=== PATIENT | male | born 1935 | race Caucasian/White ===

== ENCOUNTER 2018-10-28 15:59 | Inpatient (IN) ==
[2018-10-28 16:49] LABS: Basophils % 0.1 % (0.0-0.8); Hematocrit 41.1 VOL% (42.0-52.0); Hemoglobin 12.9 GM/DL (14.0-18.0); Immature Granulocytes % 0.5 %; Immature Granulocytes Absolute 0.06 #; Lymphocytes # 0.8 10*3/uL (1.4-4.0); Lymphocytes % 5.9 % (21.2-54.2); Mean Corpuscular HGB Conc 31.4 GM/DL (32-36); Mean Corpuscular Hemoglobin 28 PG (27-34); Mean Corpuscular Volume 87.8 FL (87-102); Mean Platelet Volume 10.7 FL (9.6-12.0); Monocytes # 1.5 10*3/uL (0.11-0.8); Monocytes % 11.3 % (1.7-12.7); Neutrophils # 10.5 10*3/uL (1.4-7.4); Neutrophils % 82.2 % (38.7-73.9); Platelet Count 379 T/CUMM (130-400); Red Blood Count 4.68 MC/CUMM (3.8-5.5); Red Cell Distribution Width 14.8 % (9.3-17.3); White Blood Count 12.8 T/CUMM (4-12)
[2018-10-28 16:57] LABS: INR 0.9; PT Patient Result 9.7 SECS; Partial Thromboplastin Time 22.9 SECS (0-40)
[2018-10-28] MEDS ORDERED: SODIUM CHLORIDE 0.9% 1,000 ML IV STA (17:03)
[2018-10-28 17:18] LABS: Calcium 9.4 MG/DL (8.5-10.1)
[2018-10-28 17:19] LABS: Albumin 2.7 G/DL (3.4-5.0); Bilirubin,Total 0.86 MG/DL (0.2-1.0); Osmolality,Calculated 316.7 MOS/KG (273-304); Potassium 4.3 MMOL/L (3.5-5.1)
[2018-10-28 18:07] LABS: Apearance,Urine Slightly Hazy (Clear); Bacteria,Urine Many /HPF (Few); Bilirubin,Urine Negative (Negative); Blood, Urine Moderate mg/dL (Negative); Glucose,Urine (UA) Negative (Negative); Ketones,Urine 20 mg/dL (Negative); Mucus,Urine Occasional /LPF (Occasional); Nitrite,Urine Negative (Negative); Protein,Urine 30 MG/DL; RBC,Urine 2 /HPF (0-4); Squamous Epithelial Cell,Urine Occasional /HPF (0-10); Urine Color Yellow (Yellow); Urine Specific Gravity 1.019 (1.001-1.035); Urine Urobilinogen < 2.0 EU/DL (0.2-1.0); WBC,Urine 19 /HPF (0-6)
[2018-10-28] MEDS ORDERED: ONDANSETRON 4 MG/2 ML VIAL IV PRN (19:01)
[2018-10-28] MEDS ORDERED: ZALEPLON 5 MG CAPSULE PO PRN (19:01)
[2018-10-28] MEDS ORDERED: LEVOFLOXACIN INJ 500 MG in PREMIX 1 EACH IV SCH (19:30)
[2018-10-28] MEDS: DEXTROSE 5% NACL 0.45% 1,000 ML IV SCH (22:09)
[2018-10-28] MEDS: ENOXAPARIN 40 MG/0.4 ML SYRINGE SUBCUT SCH (22:14)
[2018-10-28] MEDS: ACETAMINOPHEN 325 MG TABLET PO PRN (23:29)
[2018-10-29 06:19] LABS: Basophils % 0.1 % (0.0-0.8); Eosinophils % 0.2 % (0.00-10.9); Hematocrit 33.6 VOL% (42.0-52.0); Hemoglobin 10.5 GM/DL (14.0-18.0); Immature Granulocytes % 0.5 %; Immature Granulocytes Absolute 0.06 #; Mean Corpuscular HGB Conc 31.3 GM/DL (32-36); Mean Corpuscular Hemoglobin 28 PG (27-34); Mean Corpuscular Volume 88.2 FL (87-102); Mean Platelet Volume 10.8 FL (9.6-12.0); Monocytes # 1.6 10*3/uL (0.11-0.8); Monocytes % 13.1 % (1.7-12.7); Neutrophils # 9.7 10*3/uL (1.4-7.4); Neutrophils % 78.1 % (38.7-73.9); Platelet Count 332 T/CUMM (130-400); Red Blood Count 3.81 MC/CUMM (3.8-5.5); Red Cell Distribution Width 14.9 % (9.3-17.3); White Blood Count 12.5 T/CUMM (4-12)
[2018-10-29] MEDS: DEXTROSE 5% NACL 0.45% 1,000 ML IV SCH (06:36)
[2018-10-29 06:46] LABS: Folate > 24.0 NG/ML (5.4-24.0); Vitamin B12 469 PG/ML (211-911)
[2018-10-29 06:57] LABS: Free T4 (Free Thyroxine) 0.91 NG/DL (0.76-1.46); Osmolality,Calculated 316.4 MOS/KG (273-304); Potassium 3.9 MMOL/L (3.5-5.1); Thyroid Stimulating Hormone 3.71 uIU/ml (0.358-3.74)
[2018-10-29] MEDS: PANTOPRAZOLE 40 MG TABLET PO SCH (08:21)
[2018-10-29] MEDS: LACTATED RINGERS 1,000 ML IV SCH ×2 (10:20→18:40)
[2018-10-29 10:21] LABS: Basophils % 0.1 % (0.0-0.8); Eosinophils % 0.2 % (0.00-10.9); Hematocrit 33.4 VOL% (42.0-52.0); Hemoglobin 10.4 GM/DL (14.0-18.0); Immature Granulocytes % 0.7 %; Immature Granulocytes Absolute 0.09 #; Lymphocytes # 1.3 10*3/uL (1.4-4.0); Lymphocytes % 9.2 % (21.2-54.2); Mean Corpuscular HGB Conc 31.1 GM/DL (32-36); Mean Corpuscular Hemoglobin 27 PG (27-34); Mean Corpuscular Volume 88.1 FL (87-102); Mean Platelet Volume 10.5 FL (9.6-12.0); Monocytes # 1.8 10*3/uL (0.11-0.8); Monocytes % 13.3 % (1.7-12.7); Neutrophils # 10.5 10*3/uL (1.4-7.4); Neutrophils % 76.5 % (38.7-73.9); Platelet Count 318 T/CUMM (130-400); Red Blood Count 3.79 MC/CUMM (3.8-5.5); Red Cell Distribution Width 14.8 % (9.3-17.3); White Blood Count 13.7 T/CUMM (4-12)
[2018-10-29 10:43] LABS: Vitamin B12 403 PG/ML (211-911)
[2018-10-29] MEDS: ceFAZolin 1,000 MG in SYRINGE 1 EACH IV SCH ×2 (11:10→20:01)
[2018-10-29 11:45] LABS: Sedimentation Rate-Westergren 68 MM/HR (0-20)
[2018-10-29] MEDS: ENOXAPARIN 40 MG/0.4 ML SYRINGE SUBCUT SCH (20:01)
[2018-10-30] MEDS: LACTATED RINGERS 1,000 ML IV SCH (02:33)
[2018-10-30] MEDS: ceFAZolin 1,000 MG in SYRINGE 1 EACH IV SCH ×3 (02:34→18:10)
[2018-10-30 05:16] LABS: Basophils % 0.1 % (0.0-0.8); Eosinophils % 0.3 % (0.00-10.9); Hematocrit 32.3 VOL% (42.0-52.0); Hemoglobin 9.8 GM/DL (14.0-18.0); Immature Granulocytes % 0.7 %; Immature Granulocytes Absolute 0.09 #; Lymphocytes # 1.6 10*3/uL (1.4-4.0); Lymphocytes % 12.2 % (21.2-54.2); Mean Corpuscular HGB Conc 30.3 GM/DL (32-36); Mean Corpuscular Hemoglobin 28 PG (27-34); Mean Corpuscular Volume 90.5 FL (87-102); Mean Platelet Volume 10.8 FL (9.6-12.0); Monocytes # 1.7 10*3/uL (0.11-0.8); Monocytes % 12.8 % (1.7-12.7); Neutrophils % 73.9 % (38.7-73.9); Platelet Count 284 T/CUMM (130-400); Red Blood Count 3.57 MC/CUMM (3.8-5.5); Red Cell Distribution Width 14.9 % (9.3-17.3); White Blood Count 13.5 T/CUMM (4-12)
[2018-10-30 05:29] LABS: Osmolality,Calculated 307.1 MOS/KG (273-304); Potassium 4.1 MMOL/L (3.5-5.1)
[2018-10-30] MEDS: PANTOPRAZOLE 40 MG TABLET PO SCH (08:25)
[2018-10-30] MEDS ORDERED: DEXTROSE 5% NACL 0.45% 1,000 ML IV SCH (10:00)
[2018-10-30] MEDS ORDERED: CYANOCOBALAMIN 1000 MCG/1 ML VIAL IM ONE (10:14)
[2018-10-30 10:40] LABS: Hemoglobin A1 (Alkaline) 97.9 % (96.5-98.5); Hemoglobin A2 (Alkaline) 2.1 % (1.5-3.5)
[2018-10-30] MEDS ORDERED: TUBERCULIN SKIN TEST 0.1 ML SYRINGE INTRADERM ONE (12:00)
[2018-10-30] MEDS: DEXTROSE 5% 1,000 ML IV SCH (18:10)
[2018-10-30] MEDS: ENOXAPARIN 40 MG/0.4 ML SYRINGE SUBCUT SCH (20:23)
[2018-10-30] MEDS ORDERED: LEVOFLOXACIN INJ 500 MG in PREMIX 1 EACH IV SCH (21:00)
[2018-10-31] MEDS: DEXTROSE 5% 1,000 ML IV SCH ×2 (03:07→23:25)
[2018-10-31] MEDS: ceFAZolin 1,000 MG in SYRINGE 1 EACH IV SCH (03:08)
[2018-10-31 06:01] LABS: Basophils % 0.1 % (0.0-0.8); Eosinophils # 0.1 10*3/uL (0.0-0.87); Eosinophils % 0.3 % (0.00-10.9); Hematocrit 33.7 VOL% (42.0-52.0); Hemoglobin 10.3 GM/DL (14.0-18.0); Lymphocytes # 1.6 10*3/uL (1.4-4.0); Mean Corpuscular HGB Conc 30.6 GM/DL (32-36); Mean Corpuscular Hemoglobin 27 PG (27-34); Mean Corpuscular Volume 89.6 FL (87-102); Mean Platelet Volume 10.9 FL (9.6-12.0); Monocytes # 2.3 10*3/uL (0.11-0.8); Monocytes % 11.6 % (1.7-12.7); Neutrophils # 15.5 10*3/uL (1.4-7.4); Platelet Count 285 T/CUMM (130-400); Red Blood Count 3.76 MC/CUMM (3.8-5.5); White Blood Count 19.6 T/CUMM (4-12)
[2018-10-31 06:20] LABS: Calcium 8.7 MG/DL (8.5-10.1); Potassium 3.7 MMOL/L (3.5-5.1)
[2018-10-31] MEDS: PANTOPRAZOLE 40 MG TABLET PO SCH (09:38)
[2018-10-31] MEDS ORDERED: BISACODYL 10 MG SUPP RECTAL ONE (10:44)
[2018-10-31] MEDS ORDERED: VANCOMYCIN INJ 1,000 MG in SODIUM CHLORIDE 0.9% 250 ML IV SCH (11:00)
[2018-10-31] MEDS ORDERED: LEVOFLOXACIN INJ 500 MG in PREMIX 1 EACH IV SCH (11:00)
[2018-10-31] MEDS: ACETAMINOPHEN 325 MG TABLET PO PRN (11:26)
[2018-10-31] MEDS: ALBUTEROL/IPRATROPIUM 3 ML NEB RESP TX SCH ×2 (12:45→19:00)
[2018-10-31] MEDS: PIPERACILLIN/TAZOBACTAM 3,375 MG in SODIUM CHLORIDE 0.9% 100 ML IV SCH ×2 (12:59→21:21)
[2018-10-31] MEDS ORDERED: VANCOMYCIN INJ 750 MG in SODIUM CHLORIDE 0.9% 250 ML IV SCH (13:00)
[2018-10-31] MEDS ORDERED: MAGNESIUM CITRATE 300 ML BOTTLE PO ONE (16:46)
[2018-10-31] MEDS ORDERED: WARFARIN 10 MG TABLET PO SCH (18:00)
[2018-10-31] MEDS: ENOXAPARIN 40 MG/0.4 ML SYRINGE SUBCUT SCH (21:20)
[2018-11-01] MEDS: ALBUTEROL/IPRATROPIUM 3 ML NEB RESP TX SCH ×4 (00:20→20:15)
[2018-11-01] MEDS: PIPERACILLIN/TAZOBACTAM 3,375 MG in SODIUM CHLORIDE 0.9% 100 ML IV SCH (04:56)
[2018-11-01 05:09] LABS: Basophils % 0.1 % (0.0-0.8); Eosinophils % 0.1 % (0.00-10.9); Hematocrit 31.7 VOL% (42.0-52.0); Hemoglobin 9.9 GM/DL (14.0-18.0); Immature Granulocytes % 2.1 %; Immature Granulocytes Absolute 0.57 #; Lymphocytes # 1.2 10*3/uL (1.4-4.0); Lymphocytes % 4.6 % (21.2-54.2); Mean Corpuscular HGB Conc 31.2 GM/DL (32-36); Mean Corpuscular Hemoglobin 28 PG (27-34); Mean Corpuscular Volume 88.8 FL (87-102); Monocytes # 2.3 10*3/uL (0.11-0.8); Monocytes % 8.4 % (1.7-12.7); Neutrophils # 22.6 10*3/uL (1.4-7.4); Neutrophils % 84.7 % (38.7-73.9); Platelet Count 284 T/CUMM (130-400); Red Blood Count 3.57 MC/CUMM (3.8-5.5); Red Cell Distribution Width 15.1 % (9.3-17.3); White Blood Count 26.7 T/CUMM (4-12)
[2018-11-01 05:26] LABS: Calcium 8.8 MG/DL (8.5-10.1); Potassium 3.5 MMOL/L (3.5-5.1)
[2018-11-01 05:58] LABS: Lymphocytes 2 % (20-55); Platelet Estimate Normal; Polychromasia Few; Segmented Neutrophils 94 % (50-85); Total Cells Counted 100
[2018-11-01] MEDS: DEXTROSE 5% 1,000 ML IV SCH (06:01)
[2018-11-01 06:42] LABS: INR 1.1; PT Patient Result 12.4 SECS
[2018-11-01] MEDS: PANTOPRAZOLE 40 MG TABLET PO SCH (08:52)
[2018-11-01 10:23] LABS: Albumin 1.6 G/DL (3.4-5.0)
[2018-11-01 10:53] LABS: Lymphocytes,Pleural Fluid 5 %; Monocytes,Pleural Fluid 10 %; Neutrophils,Pleural Fluid 85 %
[2018-11-01 10:57] LABS: Total Protein,Body Fluid 2.5 G/DL
[2018-11-01 10:58] LABS: RBC,Pleural Fluid < 1 T/CUMM
[2018-11-01] MEDS: VANCOMYCIN 50 MG/ML 60 ML/BOTTLE PO SCH ×2 (12:20→18:03)
[2018-11-01 13:18] LABS: Apearance,Urine CLOUDY (Clear); Bacteria,Urine Few /HPF (Few); Bilirubin,Urine Negative (Negative); Blood, Urine Large mg/dL (Negative); Glucose,Urine (UA) Negative (Negative); Ketones,Urine Negative (Negative); Nitrite,Urine Negative (Negative); Protein,Urine 30 MG/DL; RBC,Urine 282 /HPF (0-4); Urine Color Yellow (Yellow); Urine Specific Gravity 1.033 (1.001-1.035); Urine Urobilinogen < 2.0 EU/DL (0.2-1.0); WBC,Urine 28 /HPF (0-6)
[2018-11-01] MEDS: ACYCLOVIR INJ 500 MG in SODIUM CHLORIDE 0.9% 100 ML IV SCH (14:10)
[2018-11-01 16:27] LABS: Glucose,CSF 83 MG/DL (40-70)
[2018-11-01 17:08] LABS: Lymphocytes,CSF 8 %; Monocytes,CSF 8 %; Neutrophils,CSF 82 %; Red Blood Cell,CSF 1609 C/CUMM; White Blood Cell,CSF 14 C/CUMM
[2018-11-01 17:09] LABS: Appearance,CSF Hazy
[2018-11-02] MEDS: VANCOMYCIN 50 MG/ML 60 ML/BOTTLE PO SCH ×4 (00:14→18:11)
[2018-11-02] MEDS: ACYCLOVIR INJ 500 MG in SODIUM CHLORIDE 0.9% 100 ML IV SCH ×2 (01:46→14:12)
[2018-11-02 04:39] LABS: Calcium 8.5 MG/DL (8.5-10.1); Osmolality,Calculated 295.1 MOS/KG (273-304); Potassium 3.9 MMOL/L (3.5-5.1)
[2018-11-02 06:22] LABS: Basophils % 0.1 % (0.0-0.8); Eosinophils # 0.1 10*3/uL (0.0-0.87); Eosinophils % 0.3 % (0.00-10.9); Hematocrit 31.1 VOL% (42.0-52.0); Hemoglobin 9.6 GM/DL (14.0-18.0); Immature Granulocytes % 1.8 %; Immature Granulocytes Absolute 0.47 #; Lymphocytes # 1.9 10*3/uL (1.4-4.0); Lymphocytes % 7.1 % (21.2-54.2); Mean Corpuscular HGB Conc 30.9 GM/DL (32-36); Mean Corpuscular Hemoglobin 27 PG (27-34); Mean Corpuscular Volume 88.6 FL (87-102); Mean Platelet Volume 11.3 FL (9.6-12.0); Monocytes # 2.8 10*3/uL (0.11-0.8); Monocytes % 10.4 % (1.7-12.7); Neutrophils # 21.4 10*3/uL (1.4-7.4); Neutrophils % 80.3 % (38.7-73.9); Platelet Count 316 T/CUMM (130-400); Red Blood Count 3.51 MC/CUMM (3.8-5.5); Red Cell Distribution Width 15.4 % (9.3-17.3); White Blood Count 26.7 T/CUMM (4-12)
[2018-11-02 06:58] LABS: Band Neutrophils 2 % (0-10); Hypochromasia 1+; Lymphocytes 9 % (20-55); Microcytosis 1+; Ovalocytes Slight; Platelet Estimate Normal; Segmented Neutrophils 80 % (50-85); Total Cells Counted 100
[2018-11-02] MEDS: ALBUTEROL/IPRATROPIUM 3 ML NEB RESP TX SCH ×4 (07:25→19:16)
[2018-11-02] MEDS: DEXTROSE 5% 1,000 ML IV SCH (08:34)
[2018-11-02] MEDS: PANTOPRAZOLE 40 MG TABLET PO SCH (08:51)
[2018-11-02] MEDS: cefTRIAXone 2,000 MG in SYRINGE 1 EACH IV SCH ×2 (08:52→21:11)
[2018-11-02] MEDS ORDERED: AMPICILLIN INJ 2,000 MG in SODIUM CHLORIDE 0.9% 100 ML IV SCH (09:00)
[2018-11-02] MEDS ORDERED: VANCOMYCIN INJ 1,250 MG in SODIUM CHLORIDE 0.9% 250 ML IV ONE (10:00)
[2018-11-02] MEDS: AMPICILLIN INJ 2,000 MG in SODIUM CHLORIDE 0.9% 100 ML IV SCH ×3 (11:51→21:10)
[2018-11-03] MEDS: ALBUTEROL/IPRATROPIUM 3 ML NEB RESP TX SCH ×4 (00:19→18:40)
[2018-11-03] MEDS: AMPICILLIN INJ 2,000 MG in SODIUM CHLORIDE 0.9% 100 ML IV SCH ×3 (00:49→09:45)
[2018-11-03] MEDS: VANCOMYCIN 50 MG/ML 60 ML/BOTTLE PO SCH ×3 (00:50→12:05)
[2018-11-03] MEDS: ACYCLOVIR INJ 500 MG in SODIUM CHLORIDE 0.9% 100 ML IV SCH ×2 (01:21→15:52)
[2018-11-03 06:36] LABS: Basophils # 0.1 10*3/uL (0.0-0.2); Basophils % 0.2 % (0.0-0.8); Eosinophils # 0.2 10*3/uL (0.0-0.87); Eosinophils % 0.7 % (0.00-10.9); Hematocrit 31.3 VOL% (42.0-52.0); Hemoglobin 9.7 GM/DL (14.0-18.0); Immature Granulocytes % 1.1 %; Immature Granulocytes Absolute 0.25 #; Lymphocytes # 1.6 10*3/uL (1.4-4.0); Lymphocytes % 6.7 % (21.2-54.2); Mean Corpuscular Hemoglobin 28 PG (27-34); Mean Corpuscular Volume 88.7 FL (87-102); Mean Platelet Volume 11.1 FL (9.6-12.0); Monocytes # 2.9 10*3/uL (0.11-0.8); Monocytes % 12.4 % (1.7-12.7); Neutrophils # 18.6 10*3/uL (1.4-7.4); Neutrophils % 78.9 % (38.7-73.9); Platelet Count 360 T/CUMM (130-400); Red Blood Count 3.53 MC/CUMM (3.8-5.5); Red Cell Distribution Width 15.7 % (9.3-17.3); White Blood Count 23.6 T/CUMM (4-12)
[2018-11-03 06:57] LABS: Albumin 1.5 G/DL (3.4-5.0); Bilirubin,Total 0.5 MG/DL (0.2-1.0); Calcium 8.5 MG/DL (8.5-10.1); Osmolality,Calculated 294.1 MOS/KG (273-304); Potassium 4.2 MMOL/L (3.5-5.1); Total Protein 4.9 G/DL (6.4-8.3)
[2018-11-03 07:29] LABS: Hypochromasia 1+; Lymphocytes 5 % (20-55); Microcytosis 1+; Ovalocytes Slight; Platelet Estimate Adequate; Segmented Neutrophils 84 % (50-85); Total Cells Counted 100
[2018-11-03] MEDS ORDERED: VANCOMYCIN INJ 750 MG in SODIUM CHLORIDE 0.9% 250 ML IV SCH (08:00)
[2018-11-03] MEDS ORDERED: BISACODYL 10 MG SUPP RECTAL ONE (08:29)
[2018-11-03] MEDS: PANTOPRAZOLE 40 MG TABLET PO SCH (08:52)
[2018-11-03] MEDS: cefTRIAXone 2,000 MG in SYRINGE 1 EACH IV SCH (08:55)
[2018-11-03] MEDS: ASPIRIN EC 81 MG TABLET PO SCH (16:44)
[2018-11-03] MEDS: ENOXAPARIN 40 MG/0.4 ML SYRINGE SUBCUT SCH (19:46)
[2018-11-04] MEDS: ALBUTEROL/IPRATROPIUM 3 ML NEB RESP TX SCH ×4 (00:20→19:30)
[2018-11-04] MEDS: ACYCLOVIR INJ 500 MG in SODIUM CHLORIDE 0.9% 100 ML IV SCH ×2 (01:10→14:58)
[2018-11-04 06:05] LABS: Risk Ratio 3.32; VLDL CHOLESTEROL 11.2 MG/DL
[2018-11-04 07:47] LABS: Basophils # 0.1 10*3/uL (0.0-0.2); Basophils % 0.2 % (0.0-0.8); Eosinophils # 0.2 10*3/uL (0.0-0.87); Eosinophils % 0.7 % (0.00-10.9); Hematocrit 29.9 VOL% (42.0-52.0); Hemoglobin 9.3 GM/DL (14.0-18.0); Immature Granulocytes % 0.8 %; Immature Granulocytes Absolute 0.19 #; Lymphocytes # 1.7 10*3/uL (1.4-4.0); Lymphocytes % 7.5 % (21.2-54.2); Mean Corpuscular HGB Conc 31.1 GM/DL (32-36); Mean Corpuscular Hemoglobin 28 PG (27-34); Mean Corpuscular Volume 88.5 FL (87-102); Mean Platelet Volume 11.1 FL (9.6-12.0); Monocytes # 3.2 10*3/uL (0.11-0.8); Monocytes % 13.8 % (1.7-12.7); Neutrophils # 17.7 10*3/uL (1.4-7.4); Platelet Count 394 T/CUMM (130-400); Red Blood Count 3.38 MC/CUMM (3.8-5.5); Red Cell Distribution Width 15.4 % (9.3-17.3)
[2018-11-04 07:54] LABS: Calcium 7.8 MG/DL (8.5-10.1); Potassium 4.4 MMOL/L (3.5-5.1)
[2018-11-04 08:14] LABS: Hypochromasia 1+; Lymphocytes 6 % (20-55); Ovalocytes Slight; Platelet Estimate Adequate; Segmented Neutrophils 85 % (50-85); Total Cells Counted 100
[2018-11-04 08:15] LABS: Microcytosis 1+
[2018-11-04] MEDS: PANTOPRAZOLE 40 MG TABLET PO SCH (08:57)
[2018-11-04] MEDS: ASPIRIN EC 81 MG TABLET PO SCH (08:57)
[2018-11-04] MEDS: DEXTROSE 5% NACL 0.45% 1,000 ML IV SCH (12:01)
[2018-11-04] MEDS: LEVOFLOXACIN INJ 500 MG in PREMIX 1 EACH IV SCH (12:07)
[2018-11-04 12:21] LABS: CMV PCR Source CSF; Epstein-Barr Virus Result Negative (Negative); Epstein-Barr Virus Source CSF; Specimen Source CSF
[2018-11-04 14:13] LABS: Apearance,Urine Slightly Hazy (Clear); Bilirubin,Urine Negative (Negative); Blood, Urine Small mg/dL (Negative); Glucose,Urine (UA) Negative (Negative); Ketones,Urine Negative (Negative); Mucus,Urine Occasional /LPF (Occasional); Nitrite,Urine Negative (Negative); Protein,Urine Negative; RBC,Urine 17 /HPF (0-4); Squamous Epithelial Cell,Urine Occasional /HPF (0-10); Urine Color Yellow (Yellow); Urine Specific Gravity 1.053 (1.001-1.035); Urine Urobilinogen < 2.0 EU/DL (0.2-1.0); WBC,Urine 5 /HPF (0-6)
[2018-11-04] MEDS: ENOXAPARIN 40 MG/0.4 ML SYRINGE SUBCUT SCH (19:16)
[2018-11-04] MEDS: ACETAMINOPHEN 325 MG TABLET PO PRN (21:34)
[2018-11-05] MEDS: ALBUTEROL/IPRATROPIUM 3 ML NEB RESP TX SCH ×4 (00:40→19:07)
[2018-11-05] MEDS: ACYCLOVIR INJ 500 MG in SODIUM CHLORIDE 0.9% 100 ML IV SCH ×2 (01:17→14:25)
[2018-11-05] MEDS: ACETAMINOPHEN 325 MG TABLET PO PRN (01:40)
[2018-11-05 04:54] LABS: Basophils # 0.1 10*3/uL (0.0-0.2); Basophils % 0.2 % (0.0-0.8); Eosinophils # 0.1 10*3/uL (0.0-0.87); Eosinophils % 0.2 % (0.00-10.9); Hemoglobin 8.6 GM/DL (14.0-18.0); Immature Granulocytes Absolute 0.26 #; Lymphocytes # 1.3 10*3/uL (1.4-4.0); Lymphocytes % 5.1 % (21.2-54.2); Mean Corpuscular HGB Conc 30.7 GM/DL (32-36); Mean Corpuscular Hemoglobin 27 PG (27-34); Mean Corpuscular Volume 88.1 FL (87-102); Mean Platelet Volume 10.6 FL (9.6-12.0); Monocytes # 3.5 10*3/uL (0.11-0.8); Monocytes % 13.3 % (1.7-12.7); Neutrophils # 21.2 10*3/uL (1.4-7.4); Neutrophils % 80.2 % (38.7-73.9); Platelet Count 437 T/CUMM (130-400); Red Blood Count 3.18 MC/CUMM (3.8-5.5); Red Cell Distribution Width 15.4 % (9.3-17.3); White Blood Count 26.4 T/CUMM (4-12)
[2018-11-05 05:07] LABS: Osmolality,Calculated 292.1 MOS/KG (273-304); Potassium 3.8 MMOL/L (3.5-5.1)
[2018-11-05 05:15] LABS: Eosinophils 2 % (0-10); Hypochromasia 1+; Lymphocytes 3 % (20-55); Microcytosis Slight; Ovalocytes Slight; Platelet Estimate Adequate; Segmented Neutrophils 81 % (50-85); Total Cells Counted 100
[2018-11-05 07:56] LABS: M. Tuberculosis PCR Result Negative (Negative); M. Tuberculosis PCR Source CSF
[2018-11-05] MEDS: ASPIRIN EC 81 MG TABLET PO SCH (09:33)
[2018-11-05] MEDS: DEXTROSE 5% NACL 0.45% 1,000 ML IV SCH (09:33)
[2018-11-05] MEDS: PANTOPRAZOLE 40 MG TABLET PO SCH (09:33)
[2018-11-05] MEDS: LEVOFLOXACIN INJ 500 MG in PREMIX 1 EACH IV SCH (13:00)
[2018-11-05 14:31] LABS: West Nile Virus Ab, IgG, CSF Negative (Negative); West Nile Virus Ab, IgM, CSF Negative (Negative)
[2018-11-05 14:51] LABS: Adenovirus PCR Negative (Negative); Specimen Source CSF
[2018-11-05] MEDS ORDERED: FUROSEMIDE 40 MG/4 ML VIAL IV ONE (21:29)
[2018-11-05] MEDS: ENOXAPARIN 40 MG/0.4 ML SYRINGE SUBCUT SCH (22:07)
[2018-11-06] MEDS: ALBUTEROL/IPRATROPIUM 3 ML NEB RESP TX SCH ×5 (01:13→18:49)
[2018-11-06] MEDS: ACYCLOVIR INJ 500 MG in SODIUM CHLORIDE 0.9% 100 ML IV SCH ×2 (01:33→15:14)
[2018-11-06 05:20] LABS: Basophils % 0.1 % (0.0-0.8); Eosinophils # 0.2 10*3/uL (0.0-0.87); Eosinophils % 0.9 % (0.00-10.9); Hematocrit 28.8 VOL% (42.0-52.0); Hemoglobin 8.8 GM/DL (14.0-18.0); Immature Granulocytes % 0.8 %; Immature Granulocytes Absolute 0.17 #; Lymphocytes # 1.4 10*3/uL (1.4-4.0); Lymphocytes % 6.4 % (21.2-54.2); Mean Corpuscular HGB Conc 30.6 GM/DL (32-36); Mean Corpuscular Hemoglobin 27 PG (27-34); Mean Corpuscular Volume 88.1 FL (87-102); Mean Platelet Volume 10.6 FL (9.6-12.0); Monocytes # 2.3 10*3/uL (0.11-0.8); Monocytes % 10.7 % (1.7-12.7); Neutrophils # 17.5 10*3/uL (1.4-7.4); Neutrophils % 81.1 % (38.7-73.9); Platelet Count 489 T/CUMM (130-400); Red Blood Count 3.27 MC/CUMM (3.8-5.5); Red Cell Distribution Width 15.2 % (9.3-17.3); White Blood Count 21.5 T/CUMM (4-12)
[2018-11-06 05:47] LABS: Elliptocytes Few; Hypochromasia 1+; Microcytosis Slight; Platelet Estimate Adequate
[2018-11-06] MEDS: PANTOPRAZOLE 40 MG TABLET PO SCH (09:50)
[2018-11-06] MEDS: ASPIRIN EC 81 MG TABLET PO SCH (09:50)
[2018-11-06] MEDS: LEVOFLOXACIN INJ 500 MG in PREMIX 1 EACH IV SCH (12:30)
[2018-11-06 15:22] LABS: Amylase,Body Fluid 36 U/L; LDH,Body Fluid 174 U/L; Total Protein,Body Fluid 2.3 G/DL; Triglycerides,Body Fluid < 14 MG/DL
[2018-11-06 16:23] LABS: Lymphocytes,Pleural Fluid 7 %; Neutrophils,Pleural Fluid 92 %
[2018-11-06 16:30] LABS: RBC,Pleural Fluid 1214 T/CUMM
[2018-11-06] MEDS: ERTAPENEM 1,000 MG in SODIUM CHLORIDE 0.9% 100 ML IV SCH (17:15)
[2018-11-06] MEDS: DEXTROSE 5% NACL 0.45% 1,000 ML IV SCH ×2 (17:15→20:30)
[2018-11-06] MEDS: ENOXAPARIN 40 MG/0.4 ML SYRINGE SUBCUT SCH (20:30)
[2018-11-07] MEDS: ALBUTEROL/IPRATROPIUM 3 ML NEB RESP TX SCH ×4 (02:00→20:20)
[2018-11-07] MEDS: ACYCLOVIR INJ 500 MG in SODIUM CHLORIDE 0.9% 100 ML IV SCH ×2 (02:00→12:14)
[2018-11-07 05:41] LABS: Basophils % 0.2 % (0.0-0.8); Eosinophils # 0.1 10*3/uL (0.0-0.87); Eosinophils % 0.5 % (0.00-10.9); Hematocrit 27.5 VOL% (42.0-52.0); Hemoglobin 8.5 GM/DL (14.0-18.0); Immature Granulocytes % 0.9 %; Immature Granulocytes Absolute 0.19 #; Lymphocytes # 1.8 10*3/uL (1.4-4.0); Lymphocytes % 8.3 % (21.2-54.2); Mean Corpuscular HGB Conc 30.9 GM/DL (32-36); Mean Corpuscular Hemoglobin 27 PG (27-34); Mean Corpuscular Volume 88.1 FL (87-102); Mean Platelet Volume 10.3 FL (9.6-12.0); Monocytes # 1.8 10*3/uL (0.11-0.8); Monocytes % 8.5 % (1.7-12.7); Neutrophils # 17.5 10*3/uL (1.4-7.4); Neutrophils % 81.6 % (38.7-73.9); Platelet Count 509 T/CUMM (130-400); Red Blood Count 3.12 MC/CUMM (3.8-5.5); Red Cell Distribution Width 15.5 % (9.3-17.3); White Blood Count 21.5 T/CUMM (4-12)
[2018-11-07 06:03] LABS: Elliptocytes Few; Hypochromasia 1+; Platelet Estimate Increased
[2018-11-07 06:04] LABS: Microcytosis Slight
[2018-11-07] MEDS: PANTOPRAZOLE 40 MG TABLET PO SCH (09:42)
[2018-11-07] MEDS: ASPIRIN EC 81 MG TABLET PO SCH (09:42)
[2018-11-07] MEDS: ERTAPENEM 1,000 MG in SODIUM CHLORIDE 0.9% 100 ML IV SCH (17:30)
[2018-11-07] MEDS: ROSUVASTATIN 10 MG TABLET PO SCH (21:30)
[2018-11-07] MEDS: ENOXAPARIN 40 MG/0.4 ML SYRINGE SUBCUT SCH (21:30)
[2018-11-07] MEDS: DEXTROSE 5% NACL 0.45% 1,000 ML IV SCH (22:19)
[2018-11-08] MEDS: ALBUTEROL/IPRATROPIUM 3 ML NEB RESP TX SCH ×4 (01:20→20:10)
[2018-11-08] MEDS: ACYCLOVIR INJ 500 MG in SODIUM CHLORIDE 0.9% 100 ML IV SCH ×2 (02:00→14:13)
[2018-11-08 04:54] LABS: Basophils % 0.2 % (0.0-0.8); Eosinophils # 0.1 10*3/uL (0.0-0.87); Eosinophils % 0.5 % (0.00-10.9); Hemoglobin 8.8 GM/DL (14.0-18.0); Immature Granulocytes % 0.9 %; Immature Granulocytes Absolute 0.16 #; Lymphocytes # 1.4 10*3/uL (1.4-4.0); Lymphocytes % 8.2 % (21.2-54.2); Mean Corpuscular HGB Conc 30.3 GM/DL (32-36); Mean Corpuscular Hemoglobin 27 PG (27-34); Mean Corpuscular Volume 88.7 FL (87-102); Mean Platelet Volume 10.3 FL (9.6-12.0); Monocytes # 1.4 10*3/uL (0.11-0.8); Monocytes % 8.4 % (1.7-12.7); Neutrophils % 81.8 % (38.7-73.9); Platelet Count 553 T/CUMM (130-400); Red Blood Count 3.27 MC/CUMM (3.8-5.5); Red Cell Distribution Width 15.5 % (9.3-17.3); White Blood Count 17.1 T/CUMM (4-12)
[2018-11-08 05:06] LABS: Calcium 8.4 MG/DL (8.5-10.1); Osmolality,Calculated 289.4 MOS/KG (273-304); Potassium 4.4 MMOL/L (3.5-5.1)
[2018-11-08] MEDS: PANTOPRAZOLE 40 MG TABLET PO SCH (09:08)
[2018-11-08] MEDS: ASPIRIN EC 81 MG TABLET PO SCH (09:08)
[2018-11-08] MEDS: ACETAMINOPHEN 325 MG TABLET PO PRN (10:10)
[2018-11-08] MEDS ORDERED: FUROSEMIDE 20 MG/2 ML VIAL IV ONE (11:40)
[2018-11-08] MEDS: ERTAPENEM 1,000 MG in SODIUM CHLORIDE 0.9% 100 ML IV SCH (16:02)
[2018-11-08] MEDS: ALBUMIN 25% 25 GM in PREMIX 1 EACH IV SCH (17:20)
[2018-11-08] MEDS: ENOXAPARIN 40 MG/0.4 ML SYRINGE SUBCUT SCH (21:00)
[2018-11-08] MEDS: ROSUVASTATIN 10 MG TABLET PO SCH (21:00)
[2018-11-09] MEDS: ACYCLOVIR INJ 500 MG in SODIUM CHLORIDE 0.9% 100 ML IV SCH ×2 (02:08→13:15)
[2018-11-09] MEDS: ALBUMIN 25% 25 GM in PREMIX 1 EACH IV SCH ×2 (02:08→08:54)
[2018-11-09] MEDS: ALBUTEROL/IPRATROPIUM 3 ML NEB RESP TX SCH ×4 (02:31→20:06)
[2018-11-09 05:19] LABS: Basophils % 0.2 % (0.0-0.8); Eosinophils # 0.1 10*3/uL (0.0-0.87); Eosinophils % 0.5 % (0.00-10.9); Hematocrit 26.9 VOL% (42.0-52.0); Hemoglobin 8.3 GM/DL (14.0-18.0); Immature Granulocytes % 0.8 %; Immature Granulocytes Absolute 0.13 #; Lymphocytes # 1.4 10*3/uL (1.4-4.0); Lymphocytes % 8.4 % (21.2-54.2); Mean Corpuscular HGB Conc 30.9 GM/DL (32-36); Mean Corpuscular Hemoglobin 27 PG (27-34); Mean Corpuscular Volume 87.6 FL (87-102); Mean Platelet Volume 10.3 FL (9.6-12.0); Monocytes # 1.5 10*3/uL (0.11-0.8); Neutrophils # 13.6 10*3/uL (1.4-7.4); Neutrophils % 81.1 % (38.7-73.9); Platelet Count 544 T/CUMM (130-400); Red Blood Count 3.07 MC/CUMM (3.8-5.5); Red Cell Distribution Width 15.5 % (9.3-17.3); White Blood Count 16.8 T/CUMM (4-12)
[2018-11-09] MEDS: PANTOPRAZOLE 40 MG TABLET PO SCH (08:34)
[2018-11-09] MEDS: ASPIRIN EC 81 MG TABLET PO SCH (08:34)
[2018-11-09] MEDS: ACETAMINOPHEN 325 MG TABLET PO PRN (08:34)
[2018-11-09] MEDS: ERTAPENEM 1,000 MG in SODIUM CHLORIDE 0.9% 100 ML IV SCH (16:30)
[2018-11-09] MEDS: ENOXAPARIN 40 MG/0.4 ML SYRINGE SUBCUT SCH (20:50)
[2018-11-09] MEDS: levETIRAcetam 500 MG TABLET PO SCH (20:51)
[2018-11-09] MEDS: ROSUVASTATIN 10 MG TABLET PO SCH (20:51)
[2018-11-10] MEDS ORDERED: SODIUM CHLORIDE 0.9% 100 ML IV ONE (00:34)
[2018-11-10] MEDS: ALBUTEROL/IPRATROPIUM 3 ML NEB RESP TX SCH ×4 (00:56→19:35)
[2018-11-10] MEDS: ACYCLOVIR INJ 500 MG in SODIUM CHLORIDE 0.9% 100 ML IV SCH ×2 (01:23→14:15)
[2018-11-10 06:08] LABS: Basophils # 0.1 10*3/uL (0.0-0.2); Basophils % 0.3 % (0.0-0.8); Eosinophils # 0.1 10*3/uL (0.0-0.87); Eosinophils % 0.4 % (0.00-10.9); Hematocrit 27.2 VOL% (42.0-52.0); Hemoglobin 8.4 GM/DL (14.0-18.0); Immature Granulocytes Absolute 0.19 #; Lymphocytes # 1.3 10*3/uL (1.4-4.0); Lymphocytes % 6.6 % (21.2-54.2); Mean Corpuscular HGB Conc 30.9 GM/DL (32-36); Mean Corpuscular Hemoglobin 27 PG (27-34); Mean Corpuscular Volume 87.7 FL (87-102); Mean Platelet Volume 10.3 FL (9.6-12.0); Monocytes # 1.6 10*3/uL (0.11-0.8); Monocytes % 8.1 % (1.7-12.7); Neutrophils # 16.2 10*3/uL (1.4-7.4); Neutrophils % 83.6 % (38.7-73.9); Platelet Count 551 T/CUMM (130-400); Red Cell Distribution Width 15.5 % (9.3-17.3); White Blood Count 19.4 T/CUMM (4-12)
[2018-11-10 06:26] LABS: Alanine Aminotransferase 28 U/L (16-61); Albumin 2.1 G/DL (3.4-5.0); Alkaline Phosphatase 116 U/L (45-117); Aspartate Amino Transferase 27 U/L (0-37); Bilirubin,Total < 0.39 MG/DL (0.2-1.0); Blood Urea Nitrogen 58 MG/DL (7-18); Calcium 8.3 MG/DL (8.5-10.1); Glucose 124 MG/DL (74-106); Osmolality,Calculated 302.8 MOS/KG (273-304); Potassium 4.1 MMOL/L (3.5-5.1); Sodium 144 MMOL/L (136-145); Total Protein 5.5 G/DL (6.4-8.3)
[2018-11-10] MEDS: ACETAMINOPHEN 325 MG TABLET PO PRN (09:23)
[2018-11-10] MEDS: PANTOPRAZOLE 40 MG TABLET PO SCH (09:24)
[2018-11-10] MEDS: ASPIRIN EC 81 MG TABLET PO SCH (09:24)
[2018-11-10] MEDS: levETIRAcetam 500 MG TABLET PO SCH ×2 (09:24→21:21)
[2018-11-10] MEDS: DEXTROSE 5% NACL 0.45% 1,000 ML IV SCH (12:55)
[2018-11-10] MEDS ORDERED: ZIPRASIDONE 20 MG CAPSULE PO PRN (13:24)
[2018-11-10] MEDS: DICLOFENAC 1% GEL 100 GM TUBE TOP SCH ×2 (15:24→21:26)
[2018-11-10] MEDS: ERTAPENEM 1,000 MG in SODIUM CHLORIDE 0.9% 100 ML IV SCH (17:18)
[2018-11-10] MEDS: ENOXAPARIN 40 MG/0.4 ML SYRINGE SUBCUT SCH (21:22)
[2018-11-10] MEDS: ROSUVASTATIN 10 MG TABLET PO SCH (21:22)
[2018-11-11] MEDS: ACYCLOVIR INJ 500 MG in SODIUM CHLORIDE 0.9% 100 ML IV SCH (00:51)
[2018-11-11] MEDS: DEXTROSE 5% NACL 0.45% 1,000 ML IV SCH (00:51)
[2018-11-11] MEDS: ALBUTEROL/IPRATROPIUM 3 ML NEB RESP TX SCH ×4 (00:58→20:24)
[2018-11-11 05:53] LABS: Calcium 8.4 MG/DL (8.5-10.1); Osmolality,Calculated 304.1 MOS/KG (273-304); Potassium 4.8 MMOL/L (3.5-5.1)
[2018-11-11 06:08] LABS: Basophils % 0.2 % (0.0-0.8); Eosinophils # 0.1 10*3/uL (0.0-0.87); Eosinophils % 0.4 % (0.00-10.9); Hematocrit 30.7 VOL% (42.0-52.0); Hemoglobin 9.5 GM/DL (14.0-18.0); Immature Granulocytes % 0.8 %; Immature Granulocytes Absolute 0.14 #; Lymphocytes # 1.3 10*3/uL (1.4-4.0); Lymphocytes % 7.4 % (21.2-54.2); Mean Corpuscular HGB Conc 30.9 GM/DL (32-36); Mean Corpuscular Hemoglobin 28 PG (27-34); Mean Corpuscular Volume 89.8 FL (87-102); Mean Platelet Volume 10.3 FL (9.6-12.0); Monocytes # 1.7 10*3/uL (0.11-0.8); Monocytes % 9.6 % (1.7-12.7); Neutrophils # 14.8 10*3/uL (1.4-7.4); Neutrophils % 81.6 % (38.7-73.9); Platelet Count 535 T/CUMM (130-400); Red Blood Count 3.42 MC/CUMM (3.8-5.5); Red Cell Distribution Width 15.6 % (9.3-17.3); White Blood Count 18.1 T/CUMM (4-12)
[2018-11-11] MEDS: SODIUM BICARB INJ 150 MEQ in DEXTROSE 5% 850 ML IV SCH ×2 (08:29→20:53)
[2018-11-11] MEDS: DICLOFENAC 1% GEL 100 GM TUBE TOP SCH ×3 (10:15→20:55)
[2018-11-11] MEDS: ASPIRIN EC 81 MG TABLET PO SCH (11:14)
[2018-11-11] MEDS: PANTOPRAZOLE 40 MG TABLET PO SCH (11:14)
[2018-11-11 12:31] LABS: Amorphous Crystals,Urine Occasional /HPF (Few); Apearance,Urine Slightly Hazy (Clear); Bilirubin,Urine Negative (Negative); Blood, Urine Large mg/dL (Negative); Glucose,Urine (UA) Negative (Negative); Ketones,Urine Negative (Negative); Nitrite,Urine Negative (Negative); Protein,Urine Negative; RBC,Urine 9 /HPF (0-4); Urine Color Yellow (Yellow); Urine Specific Gravity 1.012 (1.001-1.035); Urine Urobilinogen < 2.0 EU/DL (0.2-1.0)
[2018-11-11] MEDS: ERTAPENEM 1,000 MG in SODIUM CHLORIDE 0.9% 100 ML IV SCH (17:40)
[2018-11-11] MEDS: ROSUVASTATIN 10 MG TABLET PO SCH (20:53)
[2018-11-11] MEDS: ENOXAPARIN 30 MG/0.3 ML SYRINGE SUBCUT SCH (20:53)
[2018-11-12] MEDS: ALBUTEROL/IPRATROPIUM 3 ML NEB RESP TX SCH ×4 (01:40→18:57)
[2018-11-12 05:29] LABS: Basophils % 0.3 % (0.0-0.8); Eosinophils # 0.2 10*3/uL (0.0-0.87); Eosinophils % 1.8 % (0.00-10.9); Hematocrit 29.5 VOL% (42.0-52.0); Hemoglobin 9.1 GM/DL (14.0-18.0); Immature Granulocytes % 0.5 %; Immature Granulocytes Absolute 0.06 #; Lymphocytes # 1.4 10*3/uL (1.4-4.0); Lymphocytes % 10.9 % (21.2-54.2); Mean Corpuscular HGB Conc 30.8 GM/DL (32-36); Mean Corpuscular Hemoglobin 27 PG (27-34); Mean Corpuscular Volume 88.1 FL (87-102); Mean Platelet Volume 10.9 FL (9.6-12.0); Monocytes # 1.2 10*3/uL (0.11-0.8); Monocytes % 9.8 % (1.7-12.7); Neutrophils # 9.7 10*3/uL (1.4-7.4); Neutrophils % 76.7 % (38.7-73.9); Platelet Count 445 T/CUMM (130-400); Red Blood Count 3.35 MC/CUMM (3.8-5.5); Red Cell Distribution Width 15.6 % (9.3-17.3); White Blood Count 12.6 T/CUMM (4-12)
[2018-11-12 05:39] LABS: Albumin 1.8 G/DL (3.4-5.0); Bilirubin,Total 0.7 MG/DL (0.2-1.0); Calcium 8.3 MG/DL (8.5-10.1); Osmolality,Calculated 308.7 MOS/KG (273-304); Potassium 4.5 MMOL/L (3.5-5.1); Total Protein 5.5 G/DL (6.4-8.3)
[2018-11-12] MEDS: SODIUM BICARB INJ 150 MEQ in DEXTROSE 5% 850 ML IV SCH (08:39)
[2018-11-12] MEDS: ASPIRIN EC 81 MG TABLET PO SCH (08:40)
[2018-11-12] MEDS: PANTOPRAZOLE 40 MG TABLET PO SCH (08:40)
[2018-11-12] MEDS: DICLOFENAC 1% GEL 100 GM TUBE TOP SCH ×3 (08:43→21:10)
[2018-11-12] MEDS: DEXTROSE 5% 1,000 ML IV SCH (14:41)
[2018-11-12] MEDS: CLOPIDOGREL 75 MG TABLET PO SCH (17:56)
[2018-11-12] MEDS: ERTAPENEM 1,000 MG in SODIUM CHLORIDE 0.9% 100 ML IV SCH (18:40)
[2018-11-12] MEDS: ENOXAPARIN 30 MG/0.3 ML SYRINGE SUBCUT SCH (21:09)
[2018-11-12] MEDS: ROSUVASTATIN 10 MG TABLET PO SCH (21:09)
[2018-11-13] MEDS: ALBUTEROL/IPRATROPIUM 3 ML NEB RESP TX SCH ×4 (00:18→19:20)
[2018-11-13] MEDS: DEXTROSE 5% 1,000 ML IV SCH ×2 (01:36→16:30)
[2018-11-13 05:58] LABS: Basophils % 0.3 % (0.0-0.8); Eosinophils # 0.3 10*3/uL (0.0-0.87); Eosinophils % 2.4 % (0.00-10.9); Hematocrit 26.7 VOL% (42.0-52.0); Hemoglobin 8.1 GM/DL (14.0-18.0); Immature Granulocytes % 0.6 %; Immature Granulocytes Absolute 0.07 #; Lymphocytes # 1.7 10*3/uL (1.4-4.0); Mean Corpuscular HGB Conc 30.3 GM/DL (32-36); Mean Corpuscular Hemoglobin 27 PG (27-34); Mean Platelet Volume 10.3 FL (9.6-12.0); Monocytes # 1.3 10*3/uL (0.11-0.8); Monocytes % 10.8 % (1.7-12.7); Neutrophils # 8.6 10*3/uL (1.4-7.4); Neutrophils % 71.9 % (38.7-73.9); Platelet Count 512 T/CUMM (130-400); Red Cell Distribution Width 15.2 % (9.3-17.3); White Blood Count 11.9 T/CUMM (4-12)
[2018-11-13 06:22] LABS: Albumin 1.6 G/DL (3.4-5.0); Calcium 8.3 MG/DL (8.5-10.1); Potassium 3.9 MMOL/L (3.5-5.1); Total Protein 5.1 G/DL (6.4-8.3)
[2018-11-13] MEDS: DICLOFENAC 1% GEL 100 GM TUBE TOP SCH ×3 (13:20→21:11)
[2018-11-13] MEDS: ASPIRIN EC 81 MG TABLET PO SCH (13:20)
[2018-11-13] MEDS: PANTOPRAZOLE 40 MG TABLET PO SCH (13:20)
[2018-11-13] MEDS: CLOPIDOGREL 75 MG TABLET PO SCH (13:20)
[2018-11-13] MEDS: ERTAPENEM 1,000 MG in SODIUM CHLORIDE 0.9% 100 ML IV SCH (16:30)
[2018-11-13] MEDS: ENOXAPARIN 30 MG/0.3 ML SYRINGE SUBCUT SCH (21:09)
[2018-11-13] MEDS: ROSUVASTATIN 10 MG TABLET PO SCH (21:09)
[2018-11-14] MEDS: ALBUTEROL/IPRATROPIUM 3 ML NEB RESP TX SCH ×4 (01:04→20:59)
[2018-11-14] MEDS: DEXTROSE 5% 1,000 ML IV SCH (05:26)
[2018-11-14] MEDS: ASPIRIN EC 81 MG TABLET PO SCH (08:52)
[2018-11-14] MEDS: PANTOPRAZOLE 40 MG TABLET PO SCH (08:53)
[2018-11-14] MEDS: DICLOFENAC 1% GEL 100 GM TUBE TOP SCH ×3 (08:53→21:16)
[2018-11-14] MEDS: CLOPIDOGREL 75 MG TABLET PO SCH (08:53)
[2018-11-14] MEDS ORDERED: LACTULOSE 20 GM/30 ML UDCUP PO PRN (12:14)
[2018-11-14] MEDS ORDERED: ERTAPENEM 1,000 MG in SODIUM CHLORIDE 0.9% 100 ML IV SCH (15:00)
[2018-11-14] MEDS: ROSUVASTATIN 10 MG TABLET PO SCH (21:16)
[2018-11-14] MEDS: ENOXAPARIN 30 MG/0.3 ML SYRINGE SUBCUT SCH (21:17)
[2018-11-15] MEDS: ALBUTEROL/IPRATROPIUM 3 ML NEB RESP TX SCH ×5 (01:54→23:52)
[2018-11-15] MEDS: DEXTROSE 5% 1,000 ML IV SCH ×2 (03:07→23:45)
[2018-11-15 04:42] LABS: Basophils # 0.1 10*3/uL (0.0-0.2); Basophils % 0.5 % (0.0-0.8); Eosinophils # 0.1 10*3/uL (0.0-0.87); Eosinophils % 0.5 % (0.00-10.9); Hematocrit 25.9 VOL% (42.0-52.0); Hemoglobin 8.1 GM/DL (14.0-18.0); Immature Granulocytes % 0.6 %; Immature Granulocytes Absolute 0.06 #; Lymphocytes # 1.5 10*3/uL (1.4-4.0); Lymphocytes % 14.2 % (21.2-54.2); Mean Corpuscular HGB Conc 31.3 GM/DL (32-36); Mean Corpuscular Hemoglobin 28 PG (27-34); Mean Corpuscular Volume 87.8 FL (87-102); Mean Platelet Volume 9.9 FL (9.6-12.0); Neutrophils # 7.9 10*3/uL (1.4-7.4); Neutrophils % 75.2 % (38.7-73.9); Platelet Count 561 T/CUMM (130-400); Red Blood Count 2.95 MC/CUMM (3.8-5.5); Red Cell Distribution Width 14.6 % (9.3-17.3); White Blood Count 10.5 T/CUMM (4-12)
[2018-11-15 05:00] LABS: Calcium 7.8 MG/DL (8.5-10.1); Osmolality,Calculated 287.3 MOS/KG (273-304); Potassium 4.1 MMOL/L (3.5-5.1)
[2018-11-15] MEDS: ASPIRIN EC 81 MG TABLET PO SCH (08:32)
[2018-11-15] MEDS: CLOPIDOGREL 75 MG TABLET PO SCH (08:33)
[2018-11-15] MEDS: DICLOFENAC 1% GEL 100 GM TUBE TOP SCH ×3 (08:33→21:24)
[2018-11-15] MEDS: PANTOPRAZOLE 40 MG TABLET PO SCH (08:33)
[2018-11-15] MEDS: cefTRIAXone 1,000 MG in SYRINGE 1 EACH IV SCH (13:37)
[2018-11-15] MEDS: ACETAMINOPHEN 325 MG TABLET PO PRN (17:25)
[2018-11-15] MEDS: ENOXAPARIN 30 MG/0.3 ML SYRINGE SUBCUT SCH (21:24)
[2018-11-15] MEDS: ROSUVASTATIN 10 MG TABLET PO SCH (22:00)
[2018-11-16] MEDS: ACETAMINOPHEN 325 MG TABLET PO PRN (04:58)
[2018-11-16 06:47] LABS: Basophils % 0.3 % (0.0-0.8); Eosinophils # 0.1 10*3/uL (0.0-0.87); Eosinophils % 0.4 % (0.00-10.9); Hematocrit 26.7 VOL% (42.0-52.0); Hemoglobin 8.2 GM/DL (14.0-18.0); Immature Granulocytes % 0.7 %; Immature Granulocytes Absolute 0.08 #; Lymphocytes # 1.4 10*3/uL (1.4-4.0); Mean Corpuscular HGB Conc 30.7 GM/DL (32-36); Mean Corpuscular Hemoglobin 27 PG (27-34); Mean Corpuscular Volume 87.5 FL (87-102); Mean Platelet Volume 10.1 FL (9.6-12.0); Monocytes # 1.1 10*3/uL (0.11-0.8); Monocytes % 9.6 % (1.7-12.7); Neutrophils # 8.8 10*3/uL (1.4-7.4); Platelet Count 575 T/CUMM (130-400); Red Blood Count 3.05 MC/CUMM (3.8-5.5); Red Cell Distribution Width 14.6 % (9.3-17.3); White Blood Count 11.4 T/CUMM (4-12)
[2018-11-16 07:18] LABS: Calcium 8.1 MG/DL (8.5-10.1); Osmolality,Calculated 284.4 MOS/KG (273-304); Potassium 3.9 MMOL/L (3.5-5.1)
[2018-11-16] MEDS: ALBUTEROL/IPRATROPIUM 3 ML NEB RESP TX SCH ×3 (08:24→19:35)
[2018-11-16] MEDS: CLOPIDOGREL 75 MG TABLET PO SCH (09:13)
[2018-11-16] MEDS: PANTOPRAZOLE 40 MG TABLET PO SCH (09:13)
[2018-11-16] MEDS: ASPIRIN EC 81 MG TABLET PO SCH (09:13)
[2018-11-16] MEDS: DICLOFENAC 1% GEL 100 GM TUBE TOP SCH ×3 (09:13→21:37)
[2018-11-16] MEDS: cefTRIAXone 1,000 MG in SYRINGE 1 EACH IV SCH (13:55)
[2018-11-16] MEDS: ROSUVASTATIN 10 MG TABLET PO SCH (21:36)
[2018-11-16] MEDS: ENOXAPARIN 30 MG/0.3 ML SYRINGE SUBCUT SCH (21:37)
[2018-11-16] MEDS: OXcarbazepine 300 MG TABLET PO SCH (21:37)
[2018-11-17] MEDS: ALBUTEROL/IPRATROPIUM 3 ML NEB RESP TX SCH ×4 (01:00→19:23)
[2018-11-17 04:46] LABS: Basophils # 0.1 10*3/uL (0.0-0.2); Basophils % 0.6 % (0.0-0.8); Eosinophils # 0.2 10*3/uL (0.0-0.87); Eosinophils % 1.8 % (0.00-10.9); Hematocrit 26.9 VOL% (42.0-52.0); Hemoglobin 8.3 GM/DL (14.0-18.0); Immature Granulocytes % 0.4 %; Immature Granulocytes Absolute 0.05 #; Lymphocytes # 2.2 10*3/uL (1.4-4.0); Lymphocytes % 19.1 % (21.2-54.2); Mean Corpuscular HGB Conc 30.9 GM/DL (32-36); Mean Corpuscular Hemoglobin 27 PG (27-34); Mean Corpuscular Volume 88.5 FL (87-102); Mean Platelet Volume 9.8 FL (9.6-12.0); Monocytes # 1.2 10*3/uL (0.11-0.8); Monocytes % 10.8 % (1.7-12.7); Neutrophils # 7.7 10*3/uL (1.4-7.4); Neutrophils % 67.3 % (38.7-73.9); Platelet Count 599 T/CUMM (130-400); Red Blood Count 3.04 MC/CUMM (3.8-5.5); Red Cell Distribution Width 14.6 % (9.3-17.3); White Blood Count 11.4 T/CUMM (4-12)
[2018-11-17 05:00] LABS: Calcium 8.2 MG/DL (8.5-10.1); Potassium 3.8 MMOL/L (3.5-5.1)
[2018-11-17] MEDS: ASPIRIN EC 81 MG TABLET PO SCH (10:04)
[2018-11-17] MEDS: CLOPIDOGREL 75 MG TABLET PO SCH (10:08)
[2018-11-17] MEDS: DICLOFENAC 1% GEL 100 GM TUBE TOP SCH ×3 (10:10→21:05)
[2018-11-17] MEDS: OXcarbazepine 300 MG TABLET PO SCH ×2 (10:10→21:02)
[2018-11-17] MEDS: PANTOPRAZOLE 40 MG TABLET PO SCH (10:14)
[2018-11-17] MEDS: cefTRIAXone 1,000 MG in SYRINGE 1 EACH IV SCH (13:31)
[2018-11-17] MEDS: DEXTROSE 5% 1,000 ML IV SCH (13:36)
[2018-11-17] MEDS: ENOXAPARIN 30 MG/0.3 ML SYRINGE SUBCUT SCH (21:01)
[2018-11-17] MEDS: ROSUVASTATIN 10 MG TABLET PO SCH (21:02)
[2018-11-17] MEDS: MELATONIN 3 MG TABLET PO SCH (21:02)
[2018-11-18] MEDS: ALBUTEROL/IPRATROPIUM 3 ML NEB RESP TX SCH ×4 (00:39→19:23)
[2018-11-18] MEDS: PANTOPRAZOLE 40 MG TABLET PO SCH (08:37)
[2018-11-18] MEDS: OXcarbazepine 300 MG TABLET PO SCH ×2 (08:37→23:09)
[2018-11-18] MEDS: ASPIRIN EC 81 MG TABLET PO SCH (08:37)
[2018-11-18] MEDS: CLOPIDOGREL 75 MG TABLET PO SCH (08:37)
[2018-11-18] MEDS: DICLOFENAC 1% GEL 100 GM TUBE TOP SCH ×3 (08:40→23:09)
[2018-11-18] MEDS: cefTRIAXone 1,000 MG in SYRINGE 1 EACH IV SCH (12:18)
[2018-11-18] MEDS: ACETAMINOPHEN 325 MG TABLET PO PRN (17:39)
[2018-11-18] MEDS: MELATONIN 3 MG TABLET PO SCH (23:08)
[2018-11-18] MEDS: ENOXAPARIN 30 MG/0.3 ML SYRINGE SUBCUT SCH (23:08)
[2018-11-18] MEDS: ROSUVASTATIN 10 MG TABLET PO SCH (23:08)
[2018-11-19] MEDS: ALBUTEROL/IPRATROPIUM 3 ML NEB RESP TX SCH ×4 (00:37→19:16)
[2018-11-19 05:22] LABS: Basophils # 0.1 10*3/uL (0.0-0.2); Basophils % 0.5 % (0.0-0.8); Eosinophils # 0.7 10*3/uL (0.0-0.87); Eosinophils % 5.3 % (0.00-10.9); Hematocrit 28.6 VOL% (42.0-52.0); Hemoglobin 8.7 GM/DL (14.0-18.0); Immature Granulocytes % 0.6 %; Immature Granulocytes Absolute 0.07 #; Lymphocytes # 2.2 10*3/uL (1.4-4.0); Lymphocytes % 18.2 % (21.2-54.2); Mean Corpuscular HGB Conc 30.4 GM/DL (32-36); Mean Corpuscular Hemoglobin 27 PG (27-34); Mean Corpuscular Volume 89.4 FL (87-102); Mean Platelet Volume 9.9 FL (9.6-12.0); Monocytes # 1.6 10*3/uL (0.11-0.8); Monocytes % 13.3 % (1.7-12.7); Neutrophils # 7.6 10*3/uL (1.4-7.4); Neutrophils % 62.1 % (38.7-73.9); Platelet Count 462 T/CUMM (130-400); Red Cell Distribution Width 14.7 % (9.3-17.3); White Blood Count 12.2 T/CUMM (4-12)
[2018-11-19 05:40] LABS: Albumin 1.8 G/DL (3.4-5.0); Bilirubin,Total 0.6 MG/DL (0.2-1.0); Calcium 8.1 MG/DL (8.5-10.1); Osmolality,Calculated 289.8 MOS/KG (273-304); Potassium 3.7 MMOL/L (3.5-5.1); Total Protein 5.2 G/DL (6.4-8.3)
[2018-11-19] MEDS: PANTOPRAZOLE 40 MG TABLET PO SCH (08:58)
[2018-11-19] MEDS: CLOPIDOGREL 75 MG TABLET PO SCH (08:59)
[2018-11-19] MEDS: DICLOFENAC 1% GEL 100 GM TUBE TOP SCH ×3 (08:59→20:57)
[2018-11-19] MEDS: ASPIRIN EC 81 MG TABLET PO SCH (08:59)
[2018-11-19] MEDS: OXcarbazepine 300 MG TABLET PO SCH ×2 (08:59→20:53)
[2018-11-19] MEDS: cefTRIAXone 1,000 MG in SYRINGE 1 EACH IV SCH (13:37)
[2018-11-19] MEDS: ROSUVASTATIN 10 MG TABLET PO SCH (20:52)
[2018-11-19] MEDS: MELATONIN 3 MG TABLET PO SCH (20:53)
[2018-11-19] MEDS: ENOXAPARIN 30 MG/0.3 ML SYRINGE SUBCUT SCH (20:57)
[2018-11-20] MEDS: ALBUTEROL/IPRATROPIUM 3 ML NEB RESP TX SCH ×4 (00:40→19:10)
[2018-11-20 05:38] LABS: Basophils % 0.3 % (0.0-0.8); Eosinophils # 0.6 10*3/uL (0.0-0.87); Eosinophils % 4.6 % (0.00-10.9); Hemoglobin 7.9 GM/DL (14.0-18.0); Immature Granulocytes % 0.6 %; Immature Granulocytes Absolute 0.07 #; Lymphocytes # 1.7 10*3/uL (1.4-4.0); Lymphocytes % 13.6 % (21.2-54.2); Mean Corpuscular HGB Conc 30.4 GM/DL (32-36); Mean Corpuscular Hemoglobin 27 PG (27-34); Mean Platelet Volume 10.1 FL (9.6-12.0); Monocytes # 1.3 10*3/uL (0.11-0.8); Monocytes % 10.2 % (1.7-12.7); Neutrophils # 8.7 10*3/uL (1.4-7.4); Neutrophils % 70.7 % (38.7-73.9); Platelet Count 449 T/CUMM (130-400); Red Blood Count 2.92 MC/CUMM (3.8-5.5); Red Cell Distribution Width 14.8 % (9.3-17.3); White Blood Count 12.3 T/CUMM (4-12)
[2018-11-20 06:01] LABS: Calcium 8.2 MG/DL (8.5-10.1); Osmolality,Calculated 289.8 MOS/KG (273-304); Potassium 3.7 MMOL/L (3.5-5.1)
[2018-11-20] MEDS: CLOPIDOGREL 75 MG TABLET PO SCH (09:15)
[2018-11-20] MEDS: PANTOPRAZOLE 40 MG TABLET PO SCH (09:15)
[2018-11-20] MEDS: OXcarbazepine 300 MG TABLET PO SCH ×2 (09:15→21:19)
[2018-11-20] MEDS: ASPIRIN EC 81 MG TABLET PO SCH (09:15)
[2018-11-20] MEDS: DICLOFENAC 1% GEL 100 GM TUBE TOP SCH ×3 (09:15→21:19)
[2018-11-20] MEDS: CLOTRIMAZOLE 1% CREAM 15 GM TUBE TOP SCH ×2 (13:55→21:19)
[2018-11-20] MEDS: cefTRIAXone 1,000 MG in SYRINGE 1 EACH IV SCH (13:55)
[2018-11-20 18:32] LABS: Apearance,Urine CLEAR (Clear); Bacteria,Urine Occasional /HPF (Few); Bilirubin,Urine Negative (Negative); Blood, Urine Large mg/dL (Negative); Calcium Oxalate Crystals,Urine Occasional /HPF (Few); Glucose,Urine (UA) Negative (Negative); Ketones,Urine Negative (Negative); Mucus,Urine Occasional /LPF (Occasional); Nitrite,Urine Negative (Negative); Protein,Urine Negative; RBC,Urine 19 /HPF (0-4); Urine Color Yellow (Yellow); Urine Specific Gravity 1.004 (1.001-1.035); Urine Urobilinogen < 2.0 EU/DL (0.2-1.0); WBC,Urine 4 /HPF (0-6)
[2018-11-20] MEDS: ROSUVASTATIN 10 MG TABLET PO SCH (21:18)
[2018-11-20] MEDS: ENOXAPARIN 30 MG/0.3 ML SYRINGE SUBCUT SCH (21:19)
[2018-11-20] MEDS: MELATONIN 3 MG TABLET PO SCH (21:19)
[2018-11-21] MEDS: ALBUTEROL/IPRATROPIUM 3 ML NEB RESP TX SCH ×4 (02:27→19:39)
[2018-11-21] MEDS: OXcarbazepine 300 MG TABLET PO SCH ×2 (09:02→20:37)
[2018-11-21] MEDS: CLOPIDOGREL 75 MG TABLET PO SCH (09:03)
[2018-11-21] MEDS: ASPIRIN EC 81 MG TABLET PO SCH (09:03)
[2018-11-21] MEDS: CLOTRIMAZOLE 1% CREAM 15 GM TUBE TOP SCH ×2 (09:03→20:40)
[2018-11-21] MEDS: PANTOPRAZOLE 40 MG TABLET PO SCH (09:03)
[2018-11-21] MEDS: DICLOFENAC 1% GEL 100 GM TUBE TOP SCH ×3 (09:04→20:41)
[2018-11-21] MEDS: cefTRIAXone 1,000 MG in SYRINGE 1 EACH IV SCH (14:49)
[2018-11-21] MEDS: DESITIN 4OZ/NYSTATIN 15 GRAM MIXTURE PASTE TOP SCH ×2 (15:58→20:44)
[2018-11-21] MEDS: ROSUVASTATIN 10 MG TABLET PO SCH (20:36)
[2018-11-21] MEDS: CEFUROXIME 500 MG TABLET PO SCH (20:37)
[2018-11-21] MEDS: ENOXAPARIN 30 MG/0.3 ML SYRINGE SUBCUT SCH (20:37)
[2018-11-21] MEDS: MELATONIN 3 MG TABLET PO SCH (20:37)
[2018-11-21] MEDS: metroNIDAZOLE 500 MG TABLET PO SCH (20:42)
[2018-11-22] MEDS: ALBUTEROL/IPRATROPIUM 3 ML NEB RESP TX SCH ×4 (00:33→19:13)
[2018-11-22] MEDS: OXcarbazepine 300 MG TABLET PO SCH ×2 (10:17→21:02)
[2018-11-22] MEDS: metroNIDAZOLE 500 MG TABLET PO SCH ×3 (10:17→21:02)
[2018-11-22] MEDS: CEFUROXIME 500 MG TABLET PO SCH ×2 (10:17→21:04)
[2018-11-22] MEDS: ASPIRIN EC 81 MG TABLET PO SCH (10:18)
[2018-11-22] MEDS: CLOPIDOGREL 75 MG TABLET PO SCH (10:19)
[2018-11-22] MEDS: CLOTRIMAZOLE 1% CREAM 15 GM TUBE TOP SCH ×2 (10:19→21:03)
[2018-11-22] MEDS: PANTOPRAZOLE 40 MG TABLET PO SCH (10:19)
[2018-11-22] MEDS: DESITIN 4OZ/NYSTATIN 15 GRAM MIXTURE PASTE TOP SCH ×2 (10:19→21:03)
[2018-11-22] MEDS: DICLOFENAC 1% GEL 100 GM TUBE TOP SCH ×3 (10:19→21:03)
[2018-11-22] MEDS: ROSUVASTATIN 10 MG TABLET PO SCH (21:02)
[2018-11-22] MEDS: MELATONIN 3 MG TABLET PO SCH (21:02)
[2018-11-22] MEDS: ENOXAPARIN 30 MG/0.3 ML SYRINGE SUBCUT SCH (21:03)
[2018-11-23] MEDS: ALBUTEROL/IPRATROPIUM 3 ML NEB RESP TX SCH ×3 (01:27→12:00)
[2018-11-23] MEDS: OXcarbazepine 300 MG TABLET PO SCH (09:40)
[2018-11-23] MEDS: CLOPIDOGREL 75 MG TABLET PO SCH (09:40)
[2018-11-23] MEDS: PANTOPRAZOLE 40 MG TABLET PO SCH (09:40)
[2018-11-23] MEDS: CLOTRIMAZOLE 1% CREAM 15 GM TUBE TOP SCH (09:40)
[2018-11-23] MEDS: CEFUROXIME 500 MG TABLET PO SCH (09:40)
[2018-11-23] MEDS: ASPIRIN EC 81 MG TABLET PO SCH (09:40)
[2018-11-23] MEDS: metroNIDAZOLE 500 MG TABLET PO SCH (09:40)
[2018-11-23] MEDS: DICLOFENAC 1% GEL 100 GM TUBE TOP SCH (09:41)
[2018-11-23] MEDS: DESITIN 4OZ/NYSTATIN 15 GRAM MIXTURE PASTE TOP SCH (09:41)
[2018-11-23 12:12] VITALS: BP 138/61
== END 2018-11-23 13:44 | disposition hospice, home (50) | DRG 689 ==
LOC: EDBD → EDUNIT# → N.ED 15:59 → SUATTDRO 19:01 → N.EDINP 19:01 → N.3E 20:25
PROVIDERS: ADMIT Hospitalist; ATTEND Internal Medicine
PROC: IRTHORA (2018-11-06 07:30)

== ENCOUNTER 2018-11-29 10:34 | Inpatient (IN) ==
[2018-11-29] MEDS ORDERED: INFLUENZA VIRUS VACCINE 0.5 ML SYRINGE IM ONE (13:01)
[2018-11-29 13:44] LABS: Basophils % 0.2 % (0.0-0.8); Eosinophils % 0.2 % (0.00-10.9); Hematocrit 26.9 VOL% (42.0-52.0); Hemoglobin 8.1 GM/DL (14.0-18.0); Immature Granulocytes % 1.1 %; Immature Granulocytes Absolute 0.07 #; Lymphocytes # 0.6 10*3/uL (1.4-4.0); Lymphocytes % 9.5 % (21.2-54.2); Mean Corpuscular HGB Conc 30.1 GM/DL (32-36); Mean Corpuscular Hemoglobin 27 PG (27-34); Mean Corpuscular Volume 88.8 FL (87-102); Mean Platelet Volume 11.2 FL (9.6-12.0); Monocytes # 0.4 10*3/uL (0.11-0.8); Monocytes % 5.9 % (1.7-12.7); Neutrophils # 5.2 10*3/uL (1.4-7.4); Neutrophils % 83.1 % (38.7-73.9); Platelet Count 179 T/CUMM (130-400); Red Blood Count 3.03 MC/CUMM (3.8-5.5); Red Cell Distribution Width 15.7 % (9.3-17.3); White Blood Count 6.2 T/CUMM (4-12)
[2018-11-29 14:01] LABS: Alanine Aminotransferase 19 U/L (16-61); Albumin 1.6 G/DL (3.4-5.0); Alkaline Phosphatase 102 U/L (45-117); Aspartate Amino Transferase 32 U/L (0-37); Bilirubin,Total < 0.39 MG/DL (0.2-1.0); Blood Urea Nitrogen 100 MG/DL (7-18); Calcium 7.6 MG/DL (8.5-10.1); Glucose 84 MG/DL (74-106); Osmolality,Calculated 317.7 MOS/KG (273-304); Potassium 4.4 MMOL/L (3.5-5.1); Sodium 145 MMOL/L (136-145); Total Protein 5.5 G/DL (6.4-8.3)
[2018-11-29] MEDS ORDERED: SODIUM CHLORIDE 0.9% 1,000 ML IV PRN (14:25)
[2018-11-29 14:36] LABS: PT Patient Result 115.4 SECS
[2018-11-29 14:38] LABS: INR 10.8; Partial Thromboplastin Time 61.6 SECS (0-40)
[2018-11-29] MEDS ORDERED: MAGNESIUM HYDROXIDE SUSP 30 ML UDCUP PO PRN (15:13)
[2018-11-29] MEDS ORDERED: ACETAMINOPHEN 325 MG TABLET PO PRN (15:13)
[2018-11-29] MEDS ORDERED: ALUMINUM/MAGNES/SIMETH MAX STR 30 ML UDCUP PO PRN (15:13)
[2018-11-29] MEDS ORDERED: ALBUTEROL/IPRATROPIUM 3 ML NEB RESP TX PRN (15:15)
[2018-11-29] MEDS ORDERED: ONDANSETRON 4 MG/2 ML VIAL IV PRN (15:33)
[2018-11-29 16:09] LABS: Apearance,Urine CLOUDY (Clear); Bilirubin,Urine Negative (Negative); Blood, Urine Large mg/dL (Negative); Glucose,Urine (UA) Negative (Negative); Ketones,Urine Negative (Negative); Nitrite,Urine Negative (Negative); Protein,Urine 100 MG/DL; RBC,Urine 2407 /HPF (0-4); Urine Color Amber (Yellow); Urine Specific Gravity 1.017 (1.001-1.035); Urine Urobilinogen < 2.0 EU/DL (0.2-1.0); WBC,Urine 35 /HPF (0-6)
[2018-11-29] MEDS: cefTRIAXone 1,000 MG in SYRINGE 1 EACH IV SCH (16:54)
[2018-11-29] MEDS: SODIUM CHLORIDE 0.9% 1,000 ML IV SCH (16:54)
[2018-11-29] MEDS ORDERED: METHYLNALTREXONE 12 MG/0.6 ML VIAL SUBCUT ONE (17:30)
[2018-11-29 20:51] LABS: Hematocrit 25.2 VOL% (42.0-52.0); Hemoglobin 7.5 GM/DL (14.0-18.0)
[2018-11-29] MEDS: LACTULOSE 20 GM/30 ML UDCUP PO SCH (21:44)
[2018-11-30] MEDS: SODIUM CHLORIDE 0.9% 1,000 ML IV SCH ×3 (00:47→20:50)
[2018-11-30 04:17] LABS: Basophils % 0.1 % (0.0-0.8); Eosinophils % 0.1 % (0.00-10.9); Hematocrit 21.8 VOL% (42.0-52.0); Hemoglobin 6.6 GM/DL (14.0-18.0); Immature Granulocytes % 0.8 %; Immature Granulocytes Absolute 0.06 #; Lymphocytes # 0.6 10*3/uL (1.4-4.0); Lymphocytes % 7.7 % (21.2-54.2); Mean Corpuscular HGB Conc 30.3 GM/DL (32-36); Mean Corpuscular Hemoglobin 26 PG (27-34); Mean Corpuscular Volume 86.5 FL (87-102); Mean Platelet Volume 11.6 FL (9.6-12.0); Monocytes # 0.7 10*3/uL (0.11-0.8); Monocytes % 10.4 % (1.7-12.7); Neutrophils # 5.8 10*3/uL (1.4-7.4); Neutrophils % 80.9 % (38.7-73.9); Platelet Count 174 T/CUMM (130-400); Red Blood Count 2.52 MC/CUMM (3.8-5.5); Red Cell Distribution Width 15.8 % (9.3-17.3); White Blood Count 7.1 T/CUMM (4-12)
[2018-11-30 04:27] LABS: INR 3.4; PT Patient Result 36.1 SECS
[2018-11-30 04:47] LABS: Calcium 7.4 MG/DL (8.5-10.1); Osmolality,Calculated 326.3 MOS/KG (273-304); Potassium 4.6 MMOL/L (3.5-5.1)
[2018-11-30 09:13] LABS: Hematocrit 19.9 VOL% (42.0-52.0)
[2018-11-30 09:16] LABS: Hemoglobin 6.1 GM/DL (14.0-18.0)
[2018-11-30] MEDS: PANTOPRAZOLE 40 MG TABLET PO SCH (17:15)
[2018-11-30] MEDS: LACTULOSE 20 GM/30 ML UDCUP PO SCH ×4 (17:16→22:14)
[2018-11-30] MEDS: cefTRIAXone 1,000 MG in SYRINGE 1 EACH IV SCH (20:51)
[2018-11-30 20:55] LABS: Hematocrit 29.4 VOL% (42.0-52.0); Hemoglobin 9.3 GM/DL (14.0-18.0)
[2018-11-30 21:12] LABS: INR 2.4
[2018-11-30 21:14] LABS: PT Patient Result 25.6 SECS
[2018-12-01] MEDS: SODIUM CHLORIDE 0.9% 1,000 ML IV SCH ×3 (03:58→10:48)
[2018-12-01 05:54] LABS: Basophils % 0.2 % (0.0-0.8); Eosinophils # 0.1 10*3/uL (0.0-0.87); Eosinophils % 0.9 % (0.00-10.9); Hematocrit 26.9 VOL% (42.0-52.0); Hemoglobin 8.4 GM/DL (14.0-18.0); Immature Granulocytes % 0.7 %; Immature Granulocytes Absolute 0.06 #; Lymphocytes # 1.2 10*3/uL (1.4-4.0); Lymphocytes % 12.5 % (21.2-54.2); Mean Corpuscular HGB Conc 31.2 GM/DL (32-36); Mean Corpuscular Hemoglobin 27 PG (27-34); Mean Corpuscular Volume 85.9 FL (87-102); Monocytes % 11.3 % (1.7-12.7); Neutrophils # 6.9 10*3/uL (1.4-7.4); Neutrophils % 74.4 % (38.7-73.9); Platelet Count 143 T/CUMM (130-400); Red Blood Count 3.13 MC/CUMM (3.8-5.5); Red Cell Distribution Width 15.2 % (9.3-17.3); White Blood Count 9.2 T/CUMM (4-12)
[2018-12-01 06:15] LABS: Calcium 7.2 MG/DL (8.5-10.1); Potassium 4.4 MMOL/L (3.5-5.1)
[2018-12-01] MEDS: PANTOPRAZOLE 40 MG TABLET PO SCH (10:45)
[2018-12-01] MEDS: LACTULOSE 20 GM/30 ML UDCUP PO SCH ×3 (10:45→22:54)
[2018-12-01] MEDS ORDERED: ALBUTEROL 2.5 MG/3 ML NEB RESP TX PRN (12:44)
[2018-12-01] MEDS: ALBUTEROL/IPRATROPIUM 3 ML NEB RESP TX SCH ×2 (13:37→19:20)
[2018-12-01] MEDS: OXcarbazepine 300 MG TABLET PO SCH ×2 (14:34→22:52)
[2018-12-01] MEDS: PHYTONADIONE 5 MG/5 ML ORAL.SYR PO ONE ×2 (14:36→15:45)
[2018-12-01] MEDS: SODIUM BICARB INJ 50 MEQ in DEXTROSE 5% 1,000 ML IV SCH (14:38)
[2018-12-01] MEDS: cefTRIAXone 1,000 MG in SYRINGE 1 EACH IV SCH (14:59)
[2018-12-01] MEDS: ATORVASTATIN 10 MG TABLET PO SCH (22:52)
[2018-12-01] MEDS: MELATONIN 3 MG TABLET PO SCH (22:52)
[2018-12-01] MEDS: CEFUROXIME 500 MG TABLET PO SCH (22:57)
[2018-12-01] MEDS: metroNIDAZOLE 500 MG TABLET PO SCH (22:58)
[2018-12-02] MEDS: SODIUM BICARB INJ 50 MEQ in DEXTROSE 5% 1,000 ML IV SCH ×2 (03:50→18:55)
[2018-12-02 05:37] LABS: Basophils % 0.2 % (0.0-0.8); Eosinophils # 0.1 10*3/uL (0.0-0.87); Eosinophils % 1.3 % (0.00-10.9); Hematocrit 26.9 VOL% (42.0-52.0); Hemoglobin 8.6 GM/DL (14.0-18.0); Immature Granulocytes % 0.8 %; Immature Granulocytes Absolute 0.07 #; Lymphocytes # 1.2 10*3/uL (1.4-4.0); Lymphocytes % 14.1 % (21.2-54.2); Mean Corpuscular Hemoglobin 28 PG (27-34); Mean Corpuscular Volume 86.2 FL (87-102); Mean Platelet Volume 11.7 FL (9.6-12.0); Monocytes # 1.1 10*3/uL (0.11-0.8); Monocytes % 12.9 % (1.7-12.7); Neutrophils # 6.1 10*3/uL (1.4-7.4); Neutrophils % 70.7 % (38.7-73.9); Platelet Count 173 T/CUMM (130-400); Red Blood Count 3.12 MC/CUMM (3.8-5.5); Red Cell Distribution Width 15.6 % (9.3-17.3); White Blood Count 8.6 T/CUMM (4-12)
[2018-12-02 05:46] LABS: Calcium 7.2 MG/DL (8.5-10.1); Osmolality,Calculated 321.1 MOS/KG (273-304); Potassium 3.9 MMOL/L (3.5-5.1)
[2018-12-02 05:55] LABS: INR 1.2; PT Patient Result 13.1 SECS
[2018-12-02] MEDS: ALBUTEROL/IPRATROPIUM 3 ML NEB RESP TX SCH ×3 (07:27→19:48)
[2018-12-02] MEDS: metroNIDAZOLE 500 MG TABLET PO SCH ×3 (10:11→22:06)
[2018-12-02] MEDS: PANTOPRAZOLE 40 MG TABLET PO SCH (10:11)
[2018-12-02] MEDS: OXcarbazepine 300 MG TABLET PO SCH ×2 (10:11→22:06)
[2018-12-02] MEDS: LACTULOSE 20 GM/30 ML UDCUP PO SCH ×2 (10:12→22:06)
[2018-12-02] MEDS: SODIUM CHLOR 0.45% KCL 20 MEQ 20 MEQ/1,000 ML BAG IV SCH (10:12)
[2018-12-02] MEDS: MELATONIN 3 MG TABLET PO SCH (22:06)
[2018-12-02] MEDS: ATORVASTATIN 10 MG TABLET PO SCH (22:07)
[2018-12-02] MEDS: CEFUROXIME 500 MG TABLET PO SCH (22:07)
[2018-12-03] MEDS: SODIUM CHLOR 0.45% KCL 20 MEQ 20 MEQ/1,000 ML BAG IV SCH ×2 (00:40→13:49)
[2018-12-03] MEDS: SODIUM BICARB INJ 50 MEQ in DEXTROSE 5% 1,000 ML IV SCH (07:54)
[2018-12-03] MEDS: ALBUTEROL/IPRATROPIUM 3 ML NEB RESP TX SCH ×3 (07:56→19:19)
[2018-12-03] MEDS: metroNIDAZOLE 500 MG TABLET PO SCH ×3 (08:41→21:23)
[2018-12-03] MEDS: OXcarbazepine 300 MG TABLET PO SCH ×2 (08:41→21:23)
[2018-12-03] MEDS: PANTOPRAZOLE 40 MG TABLET PO SCH (08:43)
[2018-12-03] MEDS: LACTULOSE 20 GM/30 ML UDCUP PO SCH ×2 (08:44→21:23)
[2018-12-03 09:07] LABS: Basophils % 0.2 % (0.0-0.8); Eosinophils # 0.3 10*3/uL (0.0-0.87); Hemoglobin 8.4 GM/DL (14.0-18.0); Immature Granulocytes % 0.7 %; Immature Granulocytes Absolute 0.06 #; Lymphocytes # 1.5 10*3/uL (1.4-4.0); Lymphocytes % 16.8 % (21.2-54.2); Mean Corpuscular HGB Conc 31.1 GM/DL (32-36); Mean Corpuscular Hemoglobin 27 PG (27-34); Mean Corpuscular Volume 86.8 FL (87-102); Mean Platelet Volume 11.1 FL (9.6-12.0); Monocytes # 0.9 10*3/uL (0.11-0.8); Monocytes % 10.4 % (1.7-12.7); Neutrophils # 6.2 10*3/uL (1.4-7.4); Neutrophils % 68.9 % (38.7-73.9); Platelet Count 206 T/CUMM (130-400); Red Blood Count 3.11 MC/CUMM (3.8-5.5); Red Cell Distribution Width 15.9 % (9.3-17.3)
[2018-12-03 09:30] LABS: Calcium 7.4 MG/DL (8.5-10.1); Osmolality,Calculated 311.6 MOS/KG (273-304); Potassium 4.2 MMOL/L (3.5-5.1)
[2018-12-03] MEDS: ATORVASTATIN 10 MG TABLET PO SCH (21:23)
[2018-12-03] MEDS: MELATONIN 3 MG TABLET PO SCH (21:23)
[2018-12-03] MEDS: CEFUROXIME 500 MG TABLET PO SCH (21:23)
[2018-12-03] MEDS: ZINC OXIDE PASTE 113 GM TUBE TOP PRN (21:28)
[2018-12-04] MEDS: SODIUM CHLOR 0.45% KCL 20 MEQ 20 MEQ/1,000 ML BAG IV SCH (02:02)
[2018-12-04 05:49] LABS: Basophils % 0.2 % (0.0-0.8); Eosinophils # 0.4 10*3/uL (0.0-0.87); Eosinophils % 3.4 % (0.00-10.9); Hematocrit 27.6 VOL% (42.0-52.0); Hemoglobin 8.6 GM/DL (14.0-18.0); Immature Granulocytes % 0.9 %; Immature Granulocytes Absolute 0.11 #; Lymphocytes # 1.4 10*3/uL (1.4-4.0); Mean Corpuscular HGB Conc 31.2 GM/DL (32-36); Mean Corpuscular Hemoglobin 27 PG (27-34); Mean Corpuscular Volume 87.1 FL (87-102); Monocytes # 1.1 10*3/uL (0.11-0.8); Monocytes % 9.3 % (1.7-12.7); Neutrophils # 9.3 10*3/uL (1.4-7.4); Neutrophils % 75.2 % (38.7-73.9); Platelet Count 256 T/CUMM (130-400); Red Blood Count 3.17 MC/CUMM (3.8-5.5); Red Cell Distribution Width 15.8 % (9.3-17.3); White Blood Count 12.3 T/CUMM (4-12)
[2018-12-04 06:04] LABS: Calcium 7.6 MG/DL (8.5-10.1); Osmolality,Calculated 303.7 MOS/KG (273-304); Potassium 4.6 MMOL/L (3.5-5.1)
[2018-12-04] MEDS: ALBUTEROL/IPRATROPIUM 3 ML NEB RESP TX SCH ×3 (08:00→18:40)
[2018-12-04 08:16] LABS: % Iron Saturation 7.4 % (18-50)
[2018-12-04] MEDS: OXcarbazepine 300 MG TABLET PO SCH ×3 (09:49→23:11)
[2018-12-04] MEDS: PANTOPRAZOLE 40 MG TABLET PO SCH (09:49)
[2018-12-04] MEDS: metroNIDAZOLE 500 MG TABLET PO SCH ×4 (09:50→23:10)
[2018-12-04] MEDS: LACTULOSE 20 GM/30 ML UDCUP PO SCH ×3 (09:51→23:10)
[2018-12-04] MEDS ORDERED: LIDOCAINE 2% TOP JELLY 20 ML VIAL INTRAURETH ONE (11:30)
[2018-12-04] MEDS: CEFUROXIME 500 MG TABLET PO SCH ×2 (20:37→23:09)
[2018-12-04] MEDS: ATORVASTATIN 10 MG TABLET PO SCH ×2 (20:37→23:10)
[2018-12-04] MEDS: MELATONIN 3 MG TABLET PO SCH ×2 (20:37→23:10)
[2018-12-04] MEDS: ZINC OXIDE PASTE 113 GM TUBE TOP PRN (20:38)
[2018-12-05 05:21] LABS: Calcium 7.7 MG/DL (8.5-10.1); Osmolality,Calculated 304.4 MOS/KG (273-304); Potassium 4.4 MMOL/L (3.5-5.1)
[2018-12-05] MEDS: ALBUTEROL/IPRATROPIUM 3 ML NEB RESP TX SCH ×3 (07:25→18:55)
[2018-12-05] MEDS: metroNIDAZOLE 500 MG TABLET PO SCH ×3 (08:49→20:42)
[2018-12-05] MEDS: LACTULOSE 20 GM/30 ML UDCUP PO SCH ×2 (08:49→20:54)
[2018-12-05] MEDS: OXcarbazepine 300 MG TABLET PO SCH ×2 (08:50→20:42)
[2018-12-05] MEDS: PANTOPRAZOLE 40 MG TABLET PO SCH (08:50)
[2018-12-05] MEDS: IRON SUCROSE 200 MG in SODIUM CHLORIDE 0.9% 100 ML IV SCH (09:46)
[2018-12-05] MEDS ORDERED: FLUCONAZOLE INJ 200 MG in PREMIX 1 EACH IV ONE (11:59)
[2018-12-05] MEDS: LACTOBACILLUS ACIDOPHILUS/BULGARICUS CAPLET PO SCH (14:57)
[2018-12-05] MEDS: CLOTRIMAZOLE 10 MG TROCHE PO SCH ×2 (14:57→20:41)
[2018-12-05] MEDS: DESITIN 4OZ/NYSTATIN 15 GRAM MIXTURE PASTE TOP SCH ×2 (18:13→20:42)
[2018-12-05 18:23] LABS: INR 1.2; PT Patient Result 12.5 SECS
[2018-12-05] MEDS: ATORVASTATIN 10 MG TABLET PO SCH (20:41)
[2018-12-05] MEDS: CEFUROXIME 500 MG TABLET PO SCH (20:41)
[2018-12-05] MEDS: MELATONIN 3 MG TABLET PO SCH (20:41)
[2018-12-06] MEDS: ALBUTEROL/IPRATROPIUM 3 ML NEB RESP TX SCH ×3 (07:15→20:06)
[2018-12-06] MEDS: metroNIDAZOLE 500 MG TABLET PO SCH ×3 (10:49→21:36)
[2018-12-06] MEDS: FLUCONAZOLE 100 MG TABLET PO SCH (10:50)
[2018-12-06] MEDS: LACTOBACILLUS ACIDOPHILUS/BULGARICUS CAPLET PO SCH (10:50)
[2018-12-06] MEDS: CLOTRIMAZOLE 10 MG TROCHE PO SCH ×3 (10:50→21:36)
[2018-12-06] MEDS: OXcarbazepine 300 MG TABLET PO SCH ×2 (10:50→21:10)
[2018-12-06] MEDS: IRON SUCROSE 200 MG in SODIUM CHLORIDE 0.9% 100 ML IV SCH (10:51)
[2018-12-06] MEDS: LACTULOSE 20 GM/30 ML UDCUP PO SCH ×2 (10:51→21:09)
[2018-12-06] MEDS: PANTOPRAZOLE 40 MG TABLET PO SCH (10:51)
[2018-12-06 11:29] LABS: Lymphocytes,Pleural Fluid 61 %; Monocytes,Pleural Fluid 10 %; Neutrophils,Pleural Fluid 29 %; RBC,Pleural Fluid 9 T/CUMM
[2018-12-06 14:18] LABS: Amylase,Pleural Fluid 47 U/L; Glucose,Pleural Fluid 119 MG/DL; Total Protein,Pleural Fluid 2.6 G/DL
[2018-12-06] MEDS: MELATONIN 3 MG TABLET PO SCH (21:10)
[2018-12-06] MEDS: ATORVASTATIN 10 MG TABLET PO SCH (21:10)
[2018-12-06] MEDS: CEFUROXIME 500 MG TABLET PO SCH (21:10)
[2018-12-06] MEDS: DESITIN 4OZ/NYSTATIN 15 GRAM MIXTURE PASTE TOP SCH ×2 (21:11→21:35)
[2018-12-06] MEDS: ASCORBIC ACID 500 MG TABLET PO SCH (21:36)
[2018-12-07 06:38] LABS: Basophils % 0.2 % (0.0-0.8); Eosinophils # 0.3 10*3/uL (0.0-0.87); Eosinophils % 3.3 % (0.00-10.9); Hemoglobin 7.3 GM/DL (14.0-18.0); Immature Granulocytes % 0.6 %; Immature Granulocytes Absolute 0.06 #; Lymphocytes # 1.4 10*3/uL (1.4-4.0); Lymphocytes % 14.3 % (21.2-54.2); Mean Corpuscular HGB Conc 30.4 GM/DL (32-36); Mean Corpuscular Hemoglobin 27 PG (27-34); Mean Corpuscular Volume 88.6 FL (87-102); Monocytes % 10.5 % (1.7-12.7); Neutrophils % 71.1 % (38.7-73.9); Platelet Count 275 T/CUMM (130-400); Red Blood Count 2.71 MC/CUMM (3.8-5.5); Red Cell Distribution Width 16.1 % (9.3-17.3); White Blood Count 9.9 T/CUMM (4-12)
[2018-12-07 06:44] LABS: INR 1.1; PT Patient Result 12.4 SECS
[2018-12-07 06:54] LABS: Potassium 4.1 MMOL/L (3.5-5.1)
[2018-12-07] MEDS ORDERED: MAGNESIUM SULF RIDER 4 GM in PREMIX 1 EACH IV PRN (07:48)
[2018-12-07] MEDS: ALBUTEROL/IPRATROPIUM 3 ML NEB RESP TX SCH ×3 (07:52→19:15)
[2018-12-07] MEDS: MAGNESIUM SULF RIDER 2 GM in PREMIX 1 EACH IV PRN (08:40)
[2018-12-07] MEDS: LACTULOSE 20 GM/30 ML UDCUP PO SCH ×2 (08:43→22:11)
[2018-12-07] MEDS: FLUCONAZOLE 100 MG TABLET PO SCH (08:44)
[2018-12-07] MEDS: LACTOBACILLUS ACIDOPHILUS/BULGARICUS CAPLET PO SCH (08:44)
[2018-12-07] MEDS: OXcarbazepine 300 MG TABLET PO SCH ×2 (08:44→22:12)
[2018-12-07] MEDS: metroNIDAZOLE 500 MG TABLET PO SCH ×3 (08:44→22:12)
[2018-12-07] MEDS: PANTOPRAZOLE 40 MG TABLET PO SCH (08:44)
[2018-12-07] MEDS: CLOTRIMAZOLE 10 MG TROCHE PO SCH ×3 (08:44→22:12)
[2018-12-07] MEDS: ASCORBIC ACID 500 MG TABLET PO SCH (08:44)
[2018-12-07] MEDS: DESITIN 4OZ/NYSTATIN 15 GRAM MIXTURE PASTE TOP SCH ×2 (08:45→23:18)
[2018-12-07] MEDS: IRON SUCROSE 200 MG in SODIUM CHLORIDE 0.9% 100 ML IV SCH (10:22)
[2018-12-07] MEDS: CEFUROXIME 500 MG TABLET PO SCH (22:12)
[2018-12-07] MEDS: ATORVASTATIN 10 MG TABLET PO SCH (22:12)
[2018-12-07] MEDS: MELATONIN 3 MG TABLET PO SCH (22:12)
[2018-12-07] MEDS: ZINC OXIDE PASTE 113 GM TUBE TOP PRN (22:13)
[2018-12-08 05:26] LABS: Calcium 7.7 MG/DL (8.5-10.1); Osmolality,Calculated 301.4 MOS/KG (273-304); Potassium 4.1 MMOL/L (3.5-5.1)
[2018-12-08 05:36] LABS: Basophils % 0.2 % (0.0-0.8); Eosinophils # 0.4 10*3/uL (0.0-0.87); Hematocrit 22.4 VOL% (42.0-52.0); Hemoglobin 6.7 GM/DL (14.0-18.0); Immature Granulocytes % 0.6 %; Immature Granulocytes Absolute 0.06 #; Lymphocytes # 1.3 10*3/uL (1.4-4.0); Lymphocytes % 14.1 % (21.2-54.2); Mean Corpuscular HGB Conc 29.9 GM/DL (32-36); Mean Corpuscular Hemoglobin 27 PG (27-34); Mean Platelet Volume 10.6 FL (9.6-12.0); Monocytes # 1.2 10*3/uL (0.11-0.8); Monocytes % 12.3 % (1.7-12.7); Neutrophils # 6.5 10*3/uL (1.4-7.4); Neutrophils % 68.8 % (38.7-73.9); Platelet Count 272 T/CUMM (130-400); Red Blood Count 2.49 MC/CUMM (3.8-5.5); Red Cell Distribution Width 16.1 % (9.3-17.3); White Blood Count 9.5 T/CUMM (4-12)
[2018-12-08] MEDS: MAGNESIUM SULF RIDER 2 GM in PREMIX 1 EACH IV PRN (07:19)
[2018-12-08] MEDS: ALBUTEROL/IPRATROPIUM 3 ML NEB RESP TX SCH ×3 (07:57→19:54)
[2018-12-08] MEDS: CLOTRIMAZOLE 10 MG TROCHE PO SCH ×3 (09:25→21:00)
[2018-12-08] MEDS: ASCORBIC ACID 500 MG TABLET PO SCH (09:25)
[2018-12-08] MEDS: LACTULOSE 20 GM/30 ML UDCUP PO SCH ×2 (09:25→20:59)
[2018-12-08] MEDS: LACTOBACILLUS ACIDOPHILUS/BULGARICUS CAPLET PO SCH (09:25)
[2018-12-08] MEDS: PANTOPRAZOLE 40 MG TABLET PO SCH (09:26)
[2018-12-08] MEDS: OXcarbazepine 300 MG TABLET PO SCH ×2 (09:26→21:00)
[2018-12-08] MEDS: IRON SUCROSE 200 MG in SODIUM CHLORIDE 0.9% 100 ML IV SCH (09:26)
[2018-12-08] MEDS: metroNIDAZOLE 500 MG TABLET PO SCH ×3 (09:26→21:00)
[2018-12-08] MEDS: FLUCONAZOLE 100 MG TABLET PO SCH (09:26)
[2018-12-08] MEDS: ZINC OXIDE PASTE 113 GM TUBE TOP PRN ×2 (09:27→21:05)
[2018-12-08] MEDS: DESITIN 4OZ/NYSTATIN 15 GRAM MIXTURE PASTE TOP SCH (09:28)
[2018-12-08] MEDS ORDERED: SODIUM CHLORIDE 0.9% 1,000 ML IV PRN (10:56)
[2018-12-08] MEDS: MELATONIN 3 MG TABLET PO SCH (20:59)
[2018-12-08] MEDS: CEFUROXIME 500 MG TABLET PO SCH (21:00)
[2018-12-08] MEDS: ATORVASTATIN 10 MG TABLET PO SCH (21:00)
[2018-12-09] MEDS: DESITIN 4OZ/NYSTATIN 15 GRAM MIXTURE PASTE TOP SCH ×3 (01:13→21:32)
[2018-12-09 05:00] LABS: Basophils % 0.3 % (0.0-0.8); Eosinophils # 0.3 10*3/uL (0.0-0.87); Eosinophils % 2.9 % (0.00-10.9); Hematocrit 31.5 VOL% (42.0-52.0); Hemoglobin 9.8 GM/DL (14.0-18.0); Immature Granulocytes % 0.8 %; Immature Granulocytes Absolute 0.08 #; Lymphocytes # 1.2 10*3/uL (1.4-4.0); Lymphocytes % 12.1 % (21.2-54.2); Mean Corpuscular HGB Conc 31.1 GM/DL (32-36); Mean Corpuscular Hemoglobin 28 PG (27-34); Mean Platelet Volume 10.9 FL (9.6-12.0); Monocytes # 1.2 10*3/uL (0.11-0.8); Monocytes % 12.4 % (1.7-12.7); Neutrophils % 71.5 % (38.7-73.9); Platelet Count 268 T/CUMM (130-400); Red Blood Count 3.54 MC/CUMM (3.8-5.5); Red Cell Distribution Width 15.3 % (9.3-17.3); White Blood Count 9.8 T/CUMM (4-12)
[2018-12-09 05:31] LABS: Calcium 7.8 MG/DL (8.5-10.1); Osmolality,Calculated 300.4 MOS/KG (273-304); Potassium 3.9 MMOL/L (3.5-5.1)
[2018-12-09] MEDS: ALBUTEROL/IPRATROPIUM 3 ML NEB RESP TX SCH ×3 (07:18→19:44)
[2018-12-09] MEDS: LACTULOSE 20 GM/30 ML UDCUP PO SCH ×2 (09:50→21:02)
[2018-12-09] MEDS: CLOTRIMAZOLE 10 MG TROCHE PO SCH ×3 (09:50→21:02)
[2018-12-09] MEDS: LACTOBACILLUS ACIDOPHILUS/BULGARICUS CAPLET PO SCH (09:50)
[2018-12-09] MEDS: ASCORBIC ACID 500 MG TABLET PO SCH (09:51)
[2018-12-09] MEDS: FLUCONAZOLE 100 MG TABLET PO SCH (09:51)
[2018-12-09] MEDS: OXcarbazepine 300 MG TABLET PO SCH ×2 (09:51→21:02)
[2018-12-09] MEDS: PANTOPRAZOLE 40 MG TABLET PO SCH (09:51)
[2018-12-09] MEDS: SODIUM BICARB INJ 150 MEQ in DEXTROSE 5% 850 ML IV SCH (14:35)
[2018-12-09] MEDS: MELATONIN 3 MG TABLET PO SCH (21:02)
[2018-12-09] MEDS: ATORVASTATIN 10 MG TABLET PO SCH (21:02)
[2018-12-09] MEDS: ZINC OXIDE PASTE 113 GM TUBE TOP PRN (21:03)
[2018-12-10] MEDS: SODIUM BICARB INJ 150 MEQ in DEXTROSE 5% 850 ML IV SCH ×2 (00:50→10:06)
[2018-12-10 05:30] LABS: Basophils % 0.4 % (0.0-0.8); Eosinophils # 0.2 10*3/uL (0.0-0.87); Eosinophils % 2.7 % (0.00-10.9); Hematocrit 30.1 VOL% (42.0-52.0); Hemoglobin 9.6 GM/DL (14.0-18.0); Immature Granulocytes % 0.7 %; Immature Granulocytes Absolute 0.06 #; Lymphocytes # 1.4 10*3/uL (1.4-4.0); Lymphocytes % 15.3 % (21.2-54.2); Mean Corpuscular HGB Conc 31.9 GM/DL (32-36); Mean Corpuscular Hemoglobin 28 PG (27-34); Mean Corpuscular Volume 88.3 FL (87-102); Mean Platelet Volume 11.2 FL (9.6-12.0); Monocytes # 1.3 10*3/uL (0.11-0.8); Monocytes % 13.8 % (1.7-12.7); Neutrophils # 6.1 10*3/uL (1.4-7.4); Neutrophils % 67.1 % (38.7-73.9); Platelet Count 278 T/CUMM (130-400); Red Blood Count 3.41 MC/CUMM (3.8-5.5); Red Cell Distribution Width 15.9 % (9.3-17.3)
[2018-12-10 05:42] LABS: Calcium 7.8 MG/DL (8.5-10.1); Osmolality,Calculated 304.1 MOS/KG (273-304); Potassium 3.7 MMOL/L (3.5-5.1)
[2018-12-10] MEDS: ALBUTEROL/IPRATROPIUM 3 ML NEB RESP TX SCH ×2 (07:51→13:18)
[2018-12-10] MEDS: LACTOBACILLUS ACIDOPHILUS/BULGARICUS CAPLET PO SCH (10:05)
[2018-12-10] MEDS: FLUCONAZOLE 100 MG TABLET PO SCH (10:05)
[2018-12-10] MEDS: LACTULOSE 20 GM/30 ML UDCUP PO SCH (10:05)
[2018-12-10] MEDS: ASCORBIC ACID 500 MG TABLET PO SCH (10:05)
[2018-12-10] MEDS: CLOTRIMAZOLE 10 MG TROCHE PO SCH ×2 (10:05→14:08)
[2018-12-10] MEDS: OXcarbazepine 300 MG TABLET PO SCH (10:06)
[2018-12-10] MEDS: PANTOPRAZOLE 40 MG TABLET PO SCH (10:06)
[2018-12-10] MEDS: DESITIN 4OZ/NYSTATIN 15 GRAM MIXTURE PASTE TOP SCH (10:07)
[2018-12-10 13:38] VITALS: BP 177/77
[2018-12-10] MEDS ORDERED: metroNIDAZOLE 500 MG TABLET PO SCH (15:00)
[2018-12-10] MEDS ORDERED: CEFUROXIME 500 MG TABLET PO SCH (21:00)
== END 2018-12-10 14:52 | DRG 813 ==
LOC: N.5E 12:21 → SUATTDRO 12:21
PROVIDERS: ADMIT Internal Medicine; ATTEND Internal Medicine

== ENCOUNTER 2018-12-28 13:50 | Inpatient (IN) ==
[2018-12-28] MEDS ORDERED: ONDANSETRON 4 MG/2 ML VIAL IV PRN (17:42)
[2018-12-28] MEDS ORDERED: LACTULOSE 20 GM/30 ML UDCUP PO PRN (17:47)
[2018-12-28] MEDS ORDERED: ALBUTEROL/IPRATROPIUM 3 ML NEB RESP TX PRN (17:47)
[2018-12-28] MEDS ORDERED: SODIUM CHLORIDE 0.9% 1,000 ML IV PRN (17:50)
[2018-12-28] MEDS: DEXT 5% NACL 0.45% KCL 40 MEQ 40 MEQ/1,000 ML BAG IV SCH (18:38)
[2018-12-28 18:42] LABS: Basophils % 0.2 % (0.0-0.8); Eosinophils % 0.1 % (0.00-10.9); Hematocrit 27.5 VOL% (42.0-52.0); Hemoglobin 8.4 GM/DL (14.0-18.0); Immature Granulocytes % 1.3 %; Immature Granulocytes Absolute 0.22 #; Lymphocytes # 0.4 10*3/uL (1.4-4.0); Lymphocytes % 2.2 % (21.2-54.2); Mean Corpuscular HGB Conc 30.5 GM/DL (32-36); Mean Corpuscular Hemoglobin 28 PG (27-34); Mean Corpuscular Volume 90.8 FL (87-102); Mean Platelet Volume 10.4 FL (9.6-12.0); Monocytes # 0.2 10*3/uL (0.11-0.8); Monocytes % 1.2 % (1.7-12.7); Neutrophils # 15.7 10*3/uL (1.4-7.4); Platelet Count 321 T/CUMM (130-400); Red Blood Count 3.03 MC/CUMM (3.8-5.5); Red Cell Distribution Width 15.5 % (9.3-17.3); White Blood Count 16.5 T/CUMM (4-12)
[2018-12-28] MEDS: PIPERACILLIN/TAZOBACTAM 3,375 MG in SODIUM CHLORIDE 0.9% 100 ML IV SCH (18:42)
[2018-12-28 19:05] LABS: Albumin 1.4 G/DL (3.4-5.0); Bilirubin,Total 0.4 MG/DL (0.2-1.0); Calcium 7.7 MG/DL (8.5-10.1); Osmolality,Calculated 296.7 MOS/KG (273-304); Potassium 3.8 MMOL/L (3.5-5.1); Total Protein 5.2 G/DL (6.4-8.3)
[2018-12-28 19:15] LABS: Lymphocytes 3 % (20-55); Segmented Neutrophils 97 % (50-85); Total Cells Counted 100
[2018-12-28 19:16] LABS: Hypochromasia 1+; Macrocytosis 1+; Platelet Estimate Normal
[2018-12-28] MEDS: ATORVASTATIN 10 MG TABLET PO SCH (20:56)
[2018-12-28] MEDS: OXcarbazepine 300 MG TABLET PO SCH (20:56)
[2018-12-28] MEDS: MELATONIN 3 MG TABLET PO SCH (20:56)
[2018-12-29] MEDS: PIPERACILLIN/TAZOBACTAM 3,375 MG in SODIUM CHLORIDE 0.9% 100 ML IV SCH ×3 (02:07→17:53)
[2018-12-29 05:37] LABS: Basophils % 0.1 % (0.0-0.8); Hematocrit 26.5 VOL% (42.0-52.0); Hemoglobin 8.1 GM/DL (14.0-18.0); Immature Granulocytes % 1.9 %; Immature Granulocytes Absolute 0.27 #; Lymphocytes # 0.9 10*3/uL (1.4-4.0); Lymphocytes % 6.4 % (21.2-54.2); Mean Corpuscular HGB Conc 30.6 GM/DL (32-36); Mean Corpuscular Hemoglobin 28 PG (27-34); Mean Corpuscular Volume 90.8 FL (87-102); Mean Platelet Volume 10.5 FL (9.6-12.0); Monocytes # 0.6 10*3/uL (0.11-0.8); Monocytes % 4.3 % (1.7-12.7); Neutrophils # 12.3 10*3/uL (1.4-7.4); Neutrophils % 87.3 % (38.7-73.9); Platelet Count 341 T/CUMM (130-400); Red Blood Count 2.92 MC/CUMM (3.8-5.5); Red Cell Distribution Width 15.9 % (9.3-17.3); White Blood Count 14.1 T/CUMM (4-12)
[2018-12-29 05:55] LABS: Albumin 1.4 G/DL (3.4-5.0); Bilirubin,Total 0.6 MG/DL (0.2-1.0); Osmolality,Calculated 296.8 MOS/KG (273-304); Potassium 4.1 MMOL/L (3.5-5.1); Total Protein 5.1 G/DL (6.4-8.3)
[2018-12-29] MEDS: DEXT 5% NACL 0.45% KCL 40 MEQ 40 MEQ/1,000 ML BAG IV SCH ×2 (07:10→15:19)
[2018-12-29] MEDS: ASCORBIC ACID 500 MG TABLET PO SCH (08:36)
[2018-12-29] MEDS: PANTOPRAZOLE 40 MG TABLET PO SCH (08:37)
[2018-12-29] MEDS: OXcarbazepine 300 MG TABLET PO SCH ×2 (08:37→21:03)
[2018-12-29] MEDS: FLUCONAZOLE 100 MG TABLET PO SCH (08:38)
[2018-12-29] MEDS: LACTOBACILLUS ACIDOPHILUS/BULGARICUS CAPLET PO SCH (08:38)
[2018-12-29] MEDS: ASPIRIN EC 81 MG TABLET PO SCH (08:38)
[2018-12-29] MEDS ORDERED: FUROSEMIDE 40 MG/4 ML VIAL IV ONE (09:07)
[2018-12-29] MEDS: MELATONIN 3 MG TABLET PO SCH (21:03)
[2018-12-29] MEDS: ATORVASTATIN 10 MG TABLET PO SCH (21:03)
[2018-12-30] MEDS: PIPERACILLIN/TAZOBACTAM 3,375 MG in SODIUM CHLORIDE 0.9% 100 ML IV SCH ×3 (02:11→18:05)
[2018-12-30 05:38] LABS: Basophils # 0.1 10*3/uL (0.0-0.2); Basophils % 0.4 % (0.0-0.8); Eosinophils # 0.2 10*3/uL (0.0-0.87); Eosinophils % 1.2 % (0.00-10.9); Hematocrit 29.8 VOL% (42.0-52.0); Immature Granulocytes % 1.8 %; Immature Granulocytes Absolute 0.37 #; Lymphocytes # 1.5 10*3/uL (1.4-4.0); Lymphocytes % 7.4 % (21.2-54.2); Mean Corpuscular HGB Conc 30.2 GM/DL (32-36); Mean Corpuscular Hemoglobin 28 PG (27-34); Mean Corpuscular Volume 91.4 FL (87-102); Mean Platelet Volume 10.2 FL (9.6-12.0); Monocytes # 1.5 10*3/uL (0.11-0.8); Monocytes % 7.5 % (1.7-12.7); Neutrophils # 16.6 10*3/uL (1.4-7.4); Neutrophils % 81.7 % (38.7-73.9); Platelet Count 434 T/CUMM (130-400); Red Blood Count 3.26 MC/CUMM (3.8-5.5); Red Cell Distribution Width 15.9 % (9.3-17.3); White Blood Count 20.4 T/CUMM (4-12)
[2018-12-30 06:00] LABS: Hypochromasia 1+; Platelet Estimate Adequate
[2018-12-30 06:12] LABS: Calcium 8.2 MG/DL (8.5-10.1); Osmolality,Calculated 293.7 MOS/KG (273-304); Potassium 4.4 MMOL/L (3.5-5.1)
[2018-12-30] MEDS: PANTOPRAZOLE 40 MG TABLET PO SCH (09:24)
[2018-12-30] MEDS: ASPIRIN EC 81 MG TABLET PO SCH (09:24)
[2018-12-30] MEDS: FLUCONAZOLE 100 MG TABLET PO SCH (09:24)
[2018-12-30] MEDS: OXcarbazepine 300 MG TABLET PO SCH ×2 (09:24→20:06)
[2018-12-30] MEDS: LACTOBACILLUS ACIDOPHILUS/BULGARICUS CAPLET PO SCH (09:24)
[2018-12-30] MEDS: ASCORBIC ACID 500 MG TABLET PO SCH (09:24)
[2018-12-30] MEDS: DEXT 5% NACL 0.45% KCL 40 MEQ 40 MEQ/1,000 ML BAG IV SCH ×2 (09:37→10:00)
[2018-12-30] MEDS ORDERED: GENTAMICIN INJ 160 MG in SODIUM CHLORIDE 0.9% 100 ML IV ONE (14:30)
[2018-12-30] MEDS: ATORVASTATIN 10 MG TABLET PO SCH (20:07)
[2018-12-30] MEDS: MELATONIN 3 MG TABLET PO SCH (20:07)
[2018-12-31] MEDS: PIPERACILLIN/TAZOBACTAM 3,375 MG in SODIUM CHLORIDE 0.9% 100 ML IV SCH ×3 (01:09→21:46)
[2018-12-31 05:22] LABS: Basophils % 0.3 % (0.0-0.8); Eosinophils # 0.5 10*3/uL (0.0-0.87); Eosinophils % 3.7 % (0.00-10.9); Hematocrit 25.1 VOL% (42.0-52.0); Hemoglobin 7.7 GM/DL (14.0-18.0); Immature Granulocytes % 1.4 %; Lymphocytes # 1.8 10*3/uL (1.4-4.0); Mean Corpuscular HGB Conc 30.7 GM/DL (32-36); Mean Corpuscular Hemoglobin 28 PG (27-34); Mean Corpuscular Volume 91.9 FL (87-102); Mean Platelet Volume 10.4 FL (9.6-12.0); Monocytes # 1.2 10*3/uL (0.11-0.8); Monocytes % 8.4 % (1.7-12.7); Neutrophils # 10.1 10*3/uL (1.4-7.4); Neutrophils % 73.2 % (38.7-73.9); Platelet Count 356 T/CUMM (130-400); Red Blood Count 2.73 MC/CUMM (3.8-5.5); Red Cell Distribution Width 16.2 % (9.3-17.3); White Blood Count 13.9 T/CUMM (4-12)
[2018-12-31 05:35] LABS: Osmolality,Calculated 294.6 MOS/KG (273-304); Potassium 4.3 MMOL/L (3.5-5.1)
[2018-12-31] MEDS: DEXT 5% NACL 0.45% KCL 40 MEQ 40 MEQ/1,000 ML BAG IV SCH ×2 (08:05→08:07)
[2018-12-31] MEDS: ASCORBIC ACID 500 MG TABLET PO SCH (09:50)
[2018-12-31] MEDS: LACTOBACILLUS ACIDOPHILUS/BULGARICUS CAPLET PO SCH (09:50)
[2018-12-31] MEDS: PANTOPRAZOLE 40 MG TABLET PO SCH (09:51)
[2018-12-31] MEDS: ASPIRIN EC 81 MG TABLET PO SCH (09:51)
[2018-12-31] MEDS: FLUCONAZOLE 100 MG TABLET PO SCH (09:51)
[2018-12-31] MEDS: OXcarbazepine 300 MG TABLET PO SCH ×2 (09:51→21:47)
[2018-12-31 14:56] LABS: Hematocrit 29.4 VOL% (42.0-52.0)
[2018-12-31] MEDS: MELATONIN 3 MG TABLET PO SCH (21:46)
[2018-12-31] MEDS: ATORVASTATIN 10 MG TABLET PO SCH (21:47)
[2019-01-01] MEDS: DEXT 5% NACL 0.45% KCL 40 MEQ 40 MEQ/1,000 ML BAG IV SCH ×4 (05:05→22:19)
[2019-01-01] MEDS: PIPERACILLIN/TAZOBACTAM 3,375 MG in SODIUM CHLORIDE 0.9% 100 ML IV SCH ×3 (05:46→21:01)
[2019-01-01] MEDS: ASPIRIN EC 81 MG TABLET PO SCH (08:23)
[2019-01-01] MEDS: PANTOPRAZOLE 40 MG TABLET PO SCH (08:23)
[2019-01-01] MEDS: FLUCONAZOLE 100 MG TABLET PO SCH (08:23)
[2019-01-01] MEDS: OXcarbazepine 300 MG TABLET PO SCH ×2 (08:23→20:59)
[2019-01-01] MEDS: ASCORBIC ACID 500 MG TABLET PO SCH (08:24)
[2019-01-01] MEDS: LACTOBACILLUS ACIDOPHILUS/BULGARICUS CAPLET PO SCH (08:24)
[2019-01-01] MEDS: ACETAMINOPHEN 325 MG TABLET PO PRN (19:08)
[2019-01-01] MEDS: ATORVASTATIN 10 MG TABLET PO SCH (20:59)
[2019-01-01] MEDS: MELATONIN 3 MG TABLET PO SCH (20:59)
[2019-01-02 04:46] LABS: Basophils # 0.1 10*3/uL (0.0-0.2); Basophils % 0.5 % (0.0-0.8); Eosinophils # 0.7 10*3/uL (0.0-0.87); Hematocrit 36.2 VOL% (42.0-52.0); Hemoglobin 10.9 GM/DL (14.0-18.0); Immature Granulocytes % 1.9 %; Immature Granulocytes Absolute 0.43 #; Lymphocytes # 1.7 10*3/uL (1.4-4.0); Lymphocytes % 7.7 % (21.2-54.2); Mean Corpuscular HGB Conc 30.1 GM/DL (32-36); Mean Corpuscular Hemoglobin 28 PG (27-34); Mean Corpuscular Volume 92.3 FL (87-102); Mean Platelet Volume 10.4 FL (9.6-12.0); Monocytes # 1.4 10*3/uL (0.11-0.8); Monocytes % 6.4 % (1.7-12.7); NRBC # 0.02 10*3/uL; Neutrophils # 17.8 10*3/uL (1.4-7.4); Neutrophils % 80.5 % (38.7-73.9); Platelet Count 443 T/CUMM (130-400); Red Blood Count 3.92 MC/CUMM (3.8-5.5); Red Cell Distribution Width 16.1 % (9.3-17.3); White Blood Count 22.1 T/CUMM (4-12)
[2019-01-02 05:07] LABS: Calcium 8.2 MG/DL (8.5-10.1); Osmolality,Calculated 280.4 MOS/KG (273-304); Potassium 4.2 MMOL/L (3.5-5.1)
[2019-01-02 05:34] LABS: Platelet Estimate Normal; Polychromasia Few
[2019-01-02] MEDS: PIPERACILLIN/TAZOBACTAM 3,375 MG in SODIUM CHLORIDE 0.9% 100 ML IV SCH ×3 (07:20→21:06)
[2019-01-02] MEDS: DEXT 5% NACL 0.45% KCL 40 MEQ 40 MEQ/1,000 ML BAG IV SCH ×2 (08:00→18:40)
[2019-01-02] MEDS ORDERED: LACTATED RINGERS 1,000 ML IV SCH (08:00)
[2019-01-02] MEDS: FLUCONAZOLE 100 MG TABLET PO SCH (09:10)
[2019-01-02] MEDS: LACTOBACILLUS ACIDOPHILUS/BULGARICUS CAPLET PO SCH (09:10)
[2019-01-02] MEDS: OXcarbazepine 300 MG TABLET PO SCH ×2 (09:10→20:57)
[2019-01-02] MEDS: PANTOPRAZOLE 40 MG TABLET PO SCH (09:10)
[2019-01-02] MEDS: ASPIRIN EC 81 MG TABLET PO SCH (09:10)
[2019-01-02] MEDS: ASCORBIC ACID 500 MG TABLET PO SCH (09:10)
[2019-01-02] MEDS: LEVOFLOXACIN INJ 750 MG in PREMIX 1 EACH IV SCH ×2 (09:22→11:36)
[2019-01-02] MEDS: ACETAMINOPHEN 325 MG TABLET PO PRN (18:43)
[2019-01-02] MEDS: MELATONIN 3 MG TABLET PO SCH (20:56)
[2019-01-02] MEDS: ATORVASTATIN 10 MG TABLET PO SCH (20:56)
[2019-01-03] MEDS: ACETAMINOPHEN 325 MG TABLET PO PRN (00:31)
[2019-01-03] MEDS: DEXT 5% NACL 0.45% KCL 40 MEQ 40 MEQ/1,000 ML BAG IV SCH ×3 (04:08→14:00)
[2019-01-03] MEDS: PIPERACILLIN/TAZOBACTAM 3,375 MG in SODIUM CHLORIDE 0.9% 100 ML IV SCH ×3 (06:32→21:22)
[2019-01-03] MEDS: LACTOBACILLUS ACIDOPHILUS/BULGARICUS CAPLET PO SCH (08:42)
[2019-01-03] MEDS: ASCORBIC ACID 500 MG TABLET PO SCH (08:42)
[2019-01-03] MEDS: ASPIRIN EC 81 MG TABLET PO SCH (08:42)
[2019-01-03] MEDS: OXcarbazepine 300 MG TABLET PO SCH ×2 (08:42→21:23)
[2019-01-03] MEDS: FLUCONAZOLE 100 MG TABLET PO SCH (08:42)
[2019-01-03] MEDS: PANTOPRAZOLE 40 MG TABLET PO SCH (08:42)
[2019-01-03 09:11] LABS: Basophils # 0.1 10*3/uL (0.0-0.2); Basophils % 0.3 % (0.0-0.8); Eosinophils # 0.7 10*3/uL (0.0-0.87); Eosinophils % 3.4 % (0.00-10.9); Hemoglobin 9.4 GM/DL (14.0-18.0); Immature Granulocytes % 1.9 %; Immature Granulocytes Absolute 0.37 #; Lymphocytes # 1.4 10*3/uL (1.4-4.0); Lymphocytes % 7.2 % (21.2-54.2); Mean Corpuscular HGB Conc 30.3 GM/DL (32-36); Mean Corpuscular Hemoglobin 28 PG (27-34); Mean Platelet Volume 10.4 FL (9.6-12.0); Monocytes # 1.6 10*3/uL (0.11-0.8); Monocytes % 8.1 % (1.7-12.7); Neutrophils # 15.3 10*3/uL (1.4-7.4); Neutrophils % 79.1 % (38.7-73.9); Platelet Count 412 T/CUMM (130-400); Red Blood Count 3.37 MC/CUMM (3.8-5.5); Red Cell Distribution Width 16.5 % (9.3-17.3); White Blood Count 19.3 T/CUMM (4-12)
[2019-01-03] MEDS: LEVOFLOXACIN INJ 750 MG in PREMIX 1 EACH IV SCH (10:21)
[2019-01-03] MEDS ORDERED: ALTEPLASE 2 MG VIAL ONE (12:16)
[2019-01-03] MEDS: MELATONIN 3 MG TABLET PO SCH (21:23)
[2019-01-03] MEDS: ATORVASTATIN 10 MG TABLET PO SCH (21:23)
[2019-01-04] MEDS: PIPERACILLIN/TAZOBACTAM 3,375 MG in SODIUM CHLORIDE 0.9% 100 ML IV SCH ×3 (05:25→22:22)
[2019-01-04] MEDS: LACTOBACILLUS ACIDOPHILUS/BULGARICUS CAPLET PO SCH (08:45)
[2019-01-04] MEDS: ASPIRIN EC 81 MG TABLET PO SCH (08:45)
[2019-01-04] MEDS: OXcarbazepine 300 MG TABLET PO SCH ×2 (08:45→22:21)
[2019-01-04] MEDS: PANTOPRAZOLE 40 MG TABLET PO SCH (08:45)
[2019-01-04] MEDS: FLUCONAZOLE 100 MG TABLET PO SCH (08:45)
[2019-01-04] MEDS: ASCORBIC ACID 500 MG TABLET PO SCH (08:45)
[2019-01-04] MEDS: LEVOFLOXACIN INJ 750 MG in PREMIX 1 EACH IV SCH (08:48)
[2019-01-04] MEDS: DEXT 5% NACL 0.45% KCL 40 MEQ 40 MEQ/1,000 ML BAG IV SCH ×2 (12:42→12:43)
[2019-01-04] MEDS: ATORVASTATIN 10 MG TABLET PO SCH (22:21)
[2019-01-04] MEDS: MELATONIN 3 MG TABLET PO SCH (22:21)
[2019-01-05 04:33] LABS: Basophils # 0.1 10*3/uL (0.0-0.2); Basophils % 0.4 % (0.0-0.8); Eosinophils # 0.7 10*3/uL (0.0-0.87); Eosinophils % 5.5 % (0.00-10.9); Hematocrit 28.7 VOL% (42.0-52.0); Hemoglobin 8.8 GM/DL (14.0-18.0); Immature Granulocytes % 1.6 %; Immature Granulocytes Absolute 0.22 #; Lymphocytes # 1.4 10*3/uL (1.4-4.0); Lymphocytes % 10.1 % (21.2-54.2); Mean Corpuscular HGB Conc 30.7 GM/DL (32-36); Mean Corpuscular Hemoglobin 28 PG (27-34); Mean Corpuscular Volume 92.3 FL (87-102); Mean Platelet Volume 10.5 FL (9.6-12.0); Monocytes # 1.2 10*3/uL (0.11-0.8); Monocytes % 8.7 % (1.7-12.7); Neutrophils # 9.9 10*3/uL (1.4-7.4); Neutrophils % 73.7 % (38.7-73.9); Platelet Count 400 T/CUMM (130-400); Red Blood Count 3.11 MC/CUMM (3.8-5.5); Red Cell Distribution Width 16.5 % (9.3-17.3); White Blood Count 13.4 T/CUMM (4-12)
[2019-01-05] MEDS: ASPIRIN EC 81 MG TABLET PO SCH (08:46)
[2019-01-05] MEDS: PANTOPRAZOLE 40 MG TABLET PO SCH (08:46)
[2019-01-05] MEDS: ASCORBIC ACID 500 MG TABLET PO SCH (08:46)
[2019-01-05] MEDS: OXcarbazepine 300 MG TABLET PO SCH ×2 (08:47→21:29)
[2019-01-05] MEDS: LACTOBACILLUS ACIDOPHILUS/BULGARICUS CAPLET PO SCH (08:47)
[2019-01-05] MEDS: DEXT 5% NACL 0.45% KCL 40 MEQ 40 MEQ/1,000 ML BAG IV SCH ×3 (08:49→21:35)
[2019-01-05] MEDS: FLUCONAZOLE 100 MG TABLET PO SCH (08:49)
[2019-01-05] MEDS: LEVOFLOXACIN INJ 750 MG in PREMIX 1 EACH IV SCH (08:51)
[2019-01-05] MEDS: MELATONIN 3 MG TABLET PO SCH (21:29)
[2019-01-05] MEDS: ATORVASTATIN 10 MG TABLET PO SCH (21:29)
[2019-01-06 05:00] LABS: Basophils # 0.1 10*3/uL (0.0-0.2); Basophils % 0.4 % (0.0-0.8); Eosinophils # 0.6 10*3/uL (0.0-0.87); Eosinophils % 4.5 % (0.00-10.9); Hematocrit 29.4 VOL% (42.0-52.0); Hemoglobin 8.9 GM/DL (14.0-18.0); Immature Granulocytes % 1.3 %; Immature Granulocytes Absolute 0.18 #; Lymphocytes # 1.5 10*3/uL (1.4-4.0); Lymphocytes % 10.8 % (21.2-54.2); Mean Corpuscular HGB Conc 30.3 GM/DL (32-36); Mean Corpuscular Hemoglobin 28 PG (27-34); Mean Corpuscular Volume 91.9 FL (87-102); Mean Platelet Volume 10.4 FL (9.6-12.0); Monocytes # 1.6 10*3/uL (0.11-0.8); Monocytes % 11.1 % (1.7-12.7); Neutrophils # 10.3 10*3/uL (1.4-7.4); Neutrophils % 71.9 % (38.7-73.9); Platelet Count 399 T/CUMM (130-400); Red Cell Distribution Width 16.3 % (9.3-17.3); White Blood Count 14.3 T/CUMM (4-12)
[2019-01-06] MEDS: DEXT 5% NACL 0.45% KCL 40 MEQ 40 MEQ/1,000 ML BAG IV SCH ×3 (07:10→20:36)
[2019-01-06] MEDS: ASCORBIC ACID 500 MG TABLET PO SCH (08:20)
[2019-01-06] MEDS: LACTOBACILLUS ACIDOPHILUS/BULGARICUS CAPLET PO SCH (08:20)
[2019-01-06] MEDS: PANTOPRAZOLE 40 MG TABLET PO SCH (08:21)
[2019-01-06] MEDS: OXcarbazepine 300 MG TABLET PO SCH ×2 (08:21→20:37)
[2019-01-06] MEDS: ASPIRIN EC 81 MG TABLET PO SCH (08:21)
[2019-01-06] MEDS: LEVOFLOXACIN INJ 750 MG in PREMIX 1 EACH IV SCH (08:23)
[2019-01-06] MEDS: MELATONIN 3 MG TABLET PO SCH (20:37)
[2019-01-06] MEDS: ATORVASTATIN 10 MG TABLET PO SCH (20:37)
[2019-01-07] MEDS: DEXT 5% NACL 0.45% KCL 40 MEQ 40 MEQ/1,000 ML BAG IV SCH ×2 (06:10→13:07)
[2019-01-07] MEDS: LACTOBACILLUS ACIDOPHILUS/BULGARICUS CAPLET PO SCH (09:15)
[2019-01-07] MEDS: ASPIRIN EC 81 MG TABLET PO SCH (09:16)
[2019-01-07] MEDS: OXcarbazepine 300 MG TABLET PO SCH (09:16)
[2019-01-07] MEDS: ASCORBIC ACID 500 MG TABLET PO SCH (09:16)
[2019-01-07] MEDS: PANTOPRAZOLE 40 MG TABLET PO SCH (09:16)
[2019-01-07] MEDS: LEVOFLOXACIN INJ 750 MG in PREMIX 1 EACH IV SCH (09:17)
[2019-01-07 11:51] VITALS: BP 141/70
== END 2019-01-07 15:06 | DRG 442 ==
LOC: N.3E 15:31 → SUATTDRO 15:31
PROVIDERS: ADMIT Internal Medicine; ATTEND Internal Medicine

== ENCOUNTER 2019-06-26 14:04 | Inpatient (IN) ==
[2019-06-26] MEDS ORDERED: cefTRIAXone 1,000 MG in SODIUM CHLORIDE 0.9% 100 ML IV STA (15:23)
[2019-06-26] MEDS ORDERED: SODIUM CHLORIDE 0.9% 1,000 ML IV STA (15:23)
[2019-06-26 16:30] LABS: INR 0.9; PT Patient Result 9.8 SECS (9.6-12.2)
[2019-06-26 16:36] LABS: Basophils % 0.2 % (0.0-0.8); Eosinophils % 0.1 % (0.00-10.9); Hematocrit 47.1 VOL% (42.0-52.0); Immature Granulocytes % 0.6 %; Lymphocytes # 0.9 10*3/uL (1.4-4.0); Lymphocytes % 5.3 % (21.2-54.2); Mean Corpuscular Volume 94.2 FL (87-102); Mean Platelet Volume 10.9 FL (9.6-12.0); Neutrophils % 87.8 % (38.7-73.9); Platelet Count 321 T/CUMM (130-400); Red Cell Distribution Width 18.8 % (9.3-17.3); White Blood Count 16.7 T/CUMM (4-12)
[2019-06-26 16:38] LABS: Hemoglobin 13.2 GM/DL (14.0-18.0)
[2019-06-26 16:39] LABS: Alanine Aminotransferase 32 U/L (16-61); Albumin 2.2 G/DL (3.4-5.0); Alkaline Phosphatase 84 U/L (45-117); Aspartate Amino Transferase 26 U/L (0-37); Bilirubin,Total < 0.39 MG/DL (0.2-1.0); Blood Urea Nitrogen 34 MG/DL (7-18); Calcium 10.1 MG/DL (8.5-10.1); Estimated Glom Filtration Rate 56 ML/MIN; Glucose 105 MG/DL (74-106); Osmolality,Calculated 314.3 MOS/KG (273-304); Total Protein 6.8 G/DL (6.4-8.3)
[2019-06-26 17:18] LABS: Apearance,Urine CLOUDY (Clear); Bacteria,Urine Many /HPF (Few); Bilirubin,Urine Negative (Negative); Blood, Urine Moderate mg/dL (Negative); Glucose,Urine (UA) Negative (Negative); Ketones,Urine Negative (Negative); Mucus,Urine Occasional /LPF (Occasional); Nitrite,Urine Negative (Negative); Protein,Urine 100 MG/DL; RBC,Urine 32 /HPF (0-4); Urine Color Amber (Yellow); Urine Specific Gravity 1.015 (1.001-1.035); Urine Urobilinogen < 2.0 EU/DL (0.2-1.0); WBC,Urine 296 /HPF (0-6)
[2019-06-26] MEDS ORDERED: SODIUM CHLORIDE 0.9% 1,350 ML IV ONE ×2 (17:42→17:48)
[2019-06-26] MEDS ORDERED: ONDANSETRON 4 MG/2 ML VIAL IV PRN (17:50)
[2019-06-26] MEDS ORDERED: ACETAMINOPHEN 325 MG TABLET PO PRN (17:50)
[2019-06-26] MEDS ORDERED: PIPERACILLIN/TAZOBACTAM 3,375 MG in SODIUM CHLORIDE 0.9% 100 ML IV SCH (18:00)
[2019-06-26] MEDS ORDERED: AZITHROMYCIN INJ 500 MG in SODIUM CHLORIDE 0.9% 250 ML IV SCH (18:00)
[2019-06-26] MEDS ORDERED: fentaNYL 25 MCG/HR PATCH TRANSDERM SCH (18:00)
[2019-06-26] MEDS ORDERED: VANCOMYCIN INJ 1,250 MG in SODIUM CHLORIDE 0.9% 250 ML IV SCH (18:00)
[2019-06-26] MEDS ORDERED: DEXTROSE 5% NACL 0.45% 1,000 ML IV SCH (18:00)
[2019-06-26] MEDS ORDERED: cefTRIAXone 1,000 MG in SODIUM CHLORIDE 0.9% 100 ML IV SCH (18:00)
[2019-06-26] MEDS ORDERED: LORazepam 2 MG/1 ML VIAL IV PRN (18:15)
[2019-06-26] MEDS ORDERED: NON-FORMULARY MEDICATION (Oxcarbazepine 150 MG) PO SCH (21:00)
[2019-06-26] MEDS ORDERED: HEPARIN 5,000 UNIT/1 ML VIAL SUBCUT SCH (22:00)
[2019-06-27 06:42] LABS: Basophils # 0.1 10*3/uL (0.0-0.2); Basophils % 0.4 % (0.0-0.8); Eosinophils % 0.1 % (0.00-10.9); Hematocrit 41.6 VOL% (42.0-52.0); Immature Granulocytes % 0.8 %; Immature Granulocytes Absolute 0.15 #; Lymphocytes # 1.6 10*3/uL (1.4-4.0); Lymphocytes % 8.6 % (21.2-54.2); Mean Corpuscular HGB Conc 27.2 GM/DL (32-36); Mean Corpuscular Volume 98.1 FL (87-102); Mean Platelet Volume 10.8 FL (9.6-12.0); Monocytes % 9.5 % (1.7-12.7); Neutrophils % 80.6 % (38.7-73.9); Platelet Count 324 T/CUMM (130-400); Red Blood Count 4.24 MC/CUMM (3.8-5.5); Red Cell Distribution Width 19.1 % (9.3-17.3); White Blood Count 18.4 T/CUMM (4-12)
[2019-06-27 06:44] LABS: Hemoglobin 11.3 GM/DL (14.0-18.0)
[2019-06-27 06:45] LABS: Hypochromasia 1+; Ovalocytes Slight; Platelet Estimate Adequate
[2019-06-27 06:47] LABS: Albumin 2.2 G/DL (3.4-5.0); Bilirubin,Total 0.4 MG/DL (0.2-1.0); Calcium 10.8 MG/DL (8.5-10.1); Total Protein 6.3 G/DL (6.4-8.3)
[2019-06-27] MEDS: MORPHINE 4 MG/1 ML VIAL IV PRN ×3 (09:10→13:38)
[2019-06-27 10:20] VITALS: BP 114/48
== END 2019-06-27 15:32 | disposition expired | DRG 871 ==
LOC: EDBD → EDUNIT# → N.EDINP 14:04 → N.ED 14:04 → N.5E 19:06
PROVIDERS: ADMIT Internal Medicine; ATTEND Internal Medicine